=== PATIENT | female | born 1980 | race Caucasian/White ===

== ENCOUNTER 2016-12-08 08:37 | Emergency (ER) | payer MEDICAID ==
[~2016-12-08] VITALS: Ht 160 cm; Wt 65.8 kg
[~2016-12-08 08:37] MED LIST: ALLI; AMOX500C2 PO; BSP10T PO; BUTA-167 PO; CETI10TA20 PO; CLAR-19 PO; CLN.1T; CYCL10TA9 PO; DICL25TA PO; DIPH25CA79 PO; DIVA500T7; GENT3.5O18 OD; HYDR-34 PO; HYDR-3583 PO; HYDR1CAP2 PO; IBP800T PO; LURA40TA PO; METH4TAB PO; MONT10TA21 PO; MONT10TA24; MULT1TAB63; NAPR220C PO; OXYC-197 PO; PRD50T PO; RABE20TA PO; TRM50T PO; [UNRECOGNIZED DRUG - OTHER]
[2016-12-08 09:09] VITALS: BP 127/98
[2016-12-08] MEDS ORDERED: KETOROLAC 60 MG/2 ML VIAL IM ONE (09:30)
--- NOTE | 2016-12-08 09:55 | Diagnostic Imaging Report ---
3 views of the left ribs. INDICATION: Upper left rib pain. FINDINGS: There is no rib fracture. The left lung is clear. IMPRESSION: Unremarkable exam. Dictated by: Dictated on workstation # [id number]
--- NOTE | 2016-12-08 09:56 | Diagnostic Imaging Report ---
EXAMINATION: PA and lateral views of the chest. INDICATION: Popping sensation near the left sternoclavicular joint with thickened breast. FINDINGS: The lungs appear clear. The heart size is normal. No effusion or pneumothorax. The mediastinum and donna appear unremarkable. IMPRESSION: Unremarkable exam. Dictated by: Dictated on workstation # [id number]
--- NOTE | 2016-12-08 10:25 | ED General ---
General Chief Complaint: Chest Wall/Rib Pain Stated Complaint: LEFT SHOULDER PAIN/INJ Nursing Triage Note: c/o left sided chest wall pain. Pt reports having a popping sensation when she takes a deep breath. Onset 4 days ago. Denies known trauma. Nursing Sepsis Screen: No Definite Risk Source of Information: Patient Exam Limitations: No Limitations History of Present Illness Time Seen by Provider: 09:20 Initial Comments This 36-year-old woman presents to the emergency room with complaints of pain in the left upper chest. She reports a popping sensation when she coughs or takes in a deep breath. Pain is sharp in nature and fairly consistent. She recalls no trauma. She denies any significant cough or presence of fever. She does smoke. She has been taking Aleve for the pain. She reported light bruising in this area but no bruising is visible to this provider. Allergies and Home Medications Allergies Coded Allergies: codeine (Verified Allergy, Severe, CHEST PAIN ET SOA, 04/07/15) morphine (Verified Allergy, Severe, CHEST PAIN ET SOA, 04/07/15) tramadol (Verified Allergy, Mild, 08/14/15) watermelon (Verified Allergy, Mild, 08/14/15) hydrocodone (Unverified Adverse Reaction, Intermediate, 05/06/13) ibuprofen (Unverified Adverse Reaction, Intermediate, 05/06/13) Uncoded Allergies: JAY PEPPERS (Allergy, Mild, 08/14/15) Home Medications Divalproex Sodium 500 Mg Tablet., #30 (Reported) Montelukast Sodium 10 Mg Tablet, #30 (Reported) Prednisone 20 Mg Tab, 20 MG PO DAILY, #4 Prescribed by: MATT PINEDA on 12/08/16 1028 Constitutional: no symptoms reported EENTM: no symptoms reported Respiratory: see HPI Cardiovascular: no symptoms reported Gastrointestinal: no symptoms reported Genitourinary: no symptoms reported Musculoskeletal: see HPI Skin: no symptoms reported Psychiatric/Neurological: No Symptoms Reported Hematologic/Lymphatic: No Symptoms Reported Past Inozylr-Isxdoy-Lmfznh Hx Patient Social History Alcohol Use: Denies Use Recreational Drug Use: No Smoking Status: Current Everyday Smoker Former Smoker/When Quit: Sep 23, 2009 Recent Foreign Travel: No Contact w/Someone Who Travel: No Recent Infectious Disease Expo: No Recent Hopitalizations: Yes Immunizations Up To Date Tetanus Booster (TDap): Less than 5yrs Date of Influenza Vaccine: May 05, 2013 Surgeries HX Surgeries: Yes Surgeries: Cardiac (cardiac catheter 2010 with normal coronary arteries), Gallbladder, Hysterectomy Respiratory Hx Respiratory Disorders: No Cardiovascular Hx Cardiac Disorders: Yes (pt states she has had several heart attacks, but heart cath's were all neg) Cardiac Disorders: Heart Attack Neurological Hx Neurological Disorders: Yes Neurological Disorders: Headaches /Migraines Reproductive System Hx Reproductive Disorders: No Sexually Transmitted Disease: No HIV/AIDS: No 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 Genitourinary Hx Genitourinary Disorders: No Gastrointestinal Hx Gastrointestinal Disorders: Yes Gastrointestinal Disorders: Hiatal Hernia, Ulcer, Irritable Bowel Musculoskeletal Hx Musculoskeletal Disorders: Yes Musculoskeletal Disorders: Arthritis Endocrine Hx Endocrine Disorders: Yes Endocrine Disorders: Hypothyroidsim HEENT HX ENT Disorders: No Cancer Hx Cancer: Yes Cancer: Cervical Psychosocial Hx Psychiatric Problems: Yes Behavioral Health Disorders: Anxiety, Bipolar Integumentary HX Skin/Integumentary Disorder: No Blood Transfusions Hx Blood Disorders: No Adverse Reaction to a Blood Tr: No Family Medical History Significant Family History: Heart Disease, Diabetes, Psychiatric Problems, Seizures, Stroke Physical Exam Vital Signs Vital Sign - Last 12Hours 12/08/16 09:09 Temp 97.5 Pulse 72 Resp 18 B/P (MAP) 127/98 Pulse Ox 98 Capillary Refill : Less Than 3 Seconds General Appearance: WD/WN, Mild Distress HEENT: PERRL/EOMI, Normal ENT Inspection Neck: Non Tender Respiratory: Lungs Clear, Normal Breath Sounds, No Accessory Muscle Use, No Respiratory Distress, Other (point tenderness in the left upper anterior chest wall) Cardiovascular: Regular Rate, Rhythm, No Edema, No Murmur Gastrointestinal: Normal Bowel Sounds, Non Tender, Soft Extremity: Normal Inspection, No Pedal Edema Neurologic/Psychiatric: Alert, Oriented x3, No Motor/Sensory Deficits, Normal Mood/Affect, 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 technologist II-XII Norm as Tested Progress/Results/Core Measures Results/Orders My Orders Orders - MATT COBB MD Chest Pa/Lat (2 View) (12/08/16 09:25) Ketorolac Injection (Toradol Injection) (12/08/16 09:30) Ribs, Left 2-3 Views (12/08/16 09:25) Medications Given in ED Current Medications Medications Dose Ordered Sig/Vanna Route Start Time Stop Time Status Last Admin Dose Admin Ketorolac Tromethamine 60 mg ONCE ONCE IM 12/08/16 09:30 12/08/16 09:31 DC 12/08/16 09:51 60 MG Vital Signs/I&O Vital Sign - Last 12Hours 12/08/16 12/08/16 09:09 09:51 Temp 97.5 97.5 Pulse 72 Resp 18 B/P (MAP) 127/98 Pulse Ox 98 Blood Pressure Mean: 108 Progress Note : Progress Note Patient received Toradol with some improvement in pain. X-rays were unremarkable. Diagnostic Imaging Diagonstic Imaging: Xray Plain Films/CT/US/NM/MRI: chest Comments Chest x-ray and rib x-rays reviewed by me and report reviewed. See report below : NAME: NILESH AVILA [facility] REC#: [id number] PT STATUS: REG ER : 1980 PHYSICIAN: MATT COBB MD ADMIT DATE: 12/08/16/ER Draft Date of Exam:12/08/16 RIBS, LEFT 2-3 VIEWS 3 views of the left ribs. INDICATION: Upper left rib pain. FINDINGS: There is no rib fracture. The left lung is clear. IMPRESSION: Unremarkable exam. Dictated on workstation # [id number] Dict: 12/08/1652 Trans: 12/08/1655 [facility] [id number] Interpreted by: MAU PALMA MD NAME: NILESH AVILA [facility] REC#: [id number] PT STATUS: REG ER : 1980 PHYSICIAN: MATT COBB MD ADMIT DATE: 12/08/16/ER Draft Date of Exam:12/08/16 CHEST PA/LAT (2 VIEW) EXAMINATION: PA and lateral views of the chest. INDICATION: Popping sensation near the left sternoclavicular joint with thickened breast. FINDINGS: The lungs appear clear. The heart size is normal. No effusion or pneumothorax. The mediastinum and donna appear unremarkable. IMPRESSION: Unremarkable exam. Dictated on workstation # [id number] Dict: 12/08/16 0951 Trans: 12/08/16 0956 [facility] [id number] Interpreted by: MAU PALAM MD Departure Impression Impression: Primary Impression: Chest wall pain Disposition: 01 HOME, SELF-CARE Condition: Improved Departure-Patient Inst. Decision time for Depature: 10:22 Referrals: [facility] (PCP/Family) Primary Care Physician Patient Instructions: Chest Pain That Is Not Caused by the Heart (DC) Add. Discharge Instructions: You may continue taking anti-inflammatory medication (NSAIDs) such as Aleve ( naproxen) up to 500 mg twice daily. Take an antacid such as Pepcid (famotidine ) per package instructions while you are on anti-inflammatory medication to protect her stomach. Always take NSAID medications with food or milk to avoid stomach irritation. You may add Tylenol (acetaminophen) up to 1000 mg every 6 hours as needed for additional pain relief. Use the prednisone steroids as prescribed. Also take steroids with food or milk. Avoid taking steroids close to bedtime as it may disrupt your sleep. If not improving in a few days, follow -up with your primary care provider. You may return to the emergency room if symptoms worsen. All discharge instructions reviewed with patient and/or family. Voiced understanding. Scripts Prednisone (Prednisone) 20 Mg Tab 20 MG PO DAILY, #4 TAB Prov: MATT COBB MD 12/08/16 MATT COBB MD Dec 08, 2016 10:25
[2016-12-08] MEDS ORDERED: PRD20T PO (10:28)
== END 2016-12-08 10:45 | disposition home or self-care (01) ==
LOC: EDUNIT# 08:37 → ER 08:39
DX: R07.89 Other chest pain (principal); F17.210 Nicotine dependence, cigarettes, uncomplicated
CPT/HCPCS: 71020; 71100; 96372; 99283

== ENCOUNTER 2017-02-08 17:30 | Emergency (ER) | payer MEDICAID ==
[~2017-02-08] VITALS: Ht 154.9 cm; Wt 63.5 kg
[~2017-02-08 17:30] MED LIST changes: +PRD20T PO
[2017-02-08 18:12] LABS: BILIRUBIN,URINE NEGATIVE (NEGATIVE); KETONES,URINE NEGATIVE (NEGATIVE); LEUKOCYTE ESTERASE ,URINE NEGATIVE (NEGATIVE); NITRITE,URINE NEGATIVE (NEGATIVE); PH,URINE 6.5 (5-9); PROTEIN,URINE NEGATIVE (NEGATIVE); UROBILINOGEN,URINE NORMAL (NORMAL)
[2017-02-08 18:13] LABS: BASOPHILS % (AUTO) 0 % (0-10); EOSINOPHILS # (AUTO) 0.2 10^3/uL (0.0-0.3); EOSINOPHILS % (AUTO) 3 % (0-10); LYMPHOCYTES # (AUTO) 2.4 X 10^3 (1.0-4.0); LYMPHOCYTES % (AUTO) 39 % (12-44); MEAN CORPUSCULAR HEMOGLOBIN 31 PG (25-34); MEAN CORPUSCULAR HGB CONC 33 G/DL (32-36); MEAN CORPUSCULAR VOLUME 95 FL (80-99); MEAN PLATELET VOLUME 11.8 FL (7.4-10.4); MONOCYTES # (AUTO) 0.8 X 10^3 (0.0-1.0); MONOCYTES % (AUTO) 13 % (0-12); NEUTROPHILS # (AUTO) 2.8 X 10^3 (1.8-7.8); NEUTROPHILS % (AUTO) 46 % (42-75); PLATELET COUNT 232 10^3/uL (130-400); RED CELL DISTRIBUTION WIDTH 12.7 % (10.0-14.5); WHITE BLOOD COUNT 6.2 10^3/uL (4.3-11.0)
[2017-02-08] MEDS ORDERED: LACTATED RINGERS 1,000 ML IV ONE (18:19)
--- NOTE | 2017-02-08 18:21 | ED Abdominal Pain ---
General Chief Complaint: Abdominal/GI Problems Stated Complaint: L SIDE ABD PAIN Nursing Triage Note: PT CO OF ABD PAIN L LOWER ABD, DENIES BEING CONSTIPATED, HAS SOME NAUSEA Sepsis Screen: No Definite Risk Source of Information: Patient History of Present Illness Time Seen By Provider: 18:00 Initial Comments C/O LUQ PAIN X 3 DAYS PAIN IS CONSTANT AND RADIATES TO LEFT SHOULDER/SCAPULA AREA PAIN IS WORSE WITH MOVEMENT OF LEFT SIDE OF BODY/ARM/LEG NOTHING IMPROVES PAIN--TOOK LAXATIVE YESTERDAY AND TODAY ( IN CASE SHE MIGHT BE CONSTIPATED ) AND HAD BM'S, BUT NO IMPROVEMENT IN PAIN + NAUSEA, NO VOMITING HAS HAD SUBJECTIVE FEVER AND CHILLS OFF AND ON C/O FEELING VERY BLOATED C/O DIZZINESS NO URINARY SYMPTOMS NO HISTORY OF SIMILAR HAS NOT TAKEN ANYTHING FOR PAIN PCP: DR. TALBERT, ALSO GOES TO [facility] USED TO SEE DR. BENNETT BUT HE "RELEASED" HER IN 2011 Allergies and Home Medications Allergies Coded Allergies: codeine (Verified Allergy, Severe, CHEST PAIN ET SOA, 04/07/15) morphine (Verified Allergy, Severe, CHEST PAIN ET SOA, 04/07/15) tramadol (Verified Allergy, Mild, 08/14/15) watermelon (Verified Allergy, Mild, 08/14/15) hydrocodone (Unverified Adverse Reaction, Intermediate, 05/06/13) ibuprofen (Unverified Adverse Reaction, Intermediate, 05/06/13) Uncoded Allergies: JAY PEPPERS (Allergy, Mild, 08/14/15) Home Medications Dicyclomine HCl 10 Mg Capsule, 10 MG PO Q6H PRN for ABDOMINAL PAIN, #15 Prescribed by: STEVEN NICHOLSON on 02/08/171846 Divalproex Sodium 500 Mg Tablet., #30 (Reported) Hyoscyamine Sulfate 0.125 Mg Tab.subl, 1-2 TAB SL Q4H, #15 Prescribed by: STEVEN NICHOLSON on 02/08/171846 Montelukast Sodium 10 Mg Tablet, #30 (Reported) Ondansetron 4 Mg Tab.rapdis, 4 MG PO Q4H, #10 Prescribed by: STEVEN NICHOLSON on 02/08/171846 Pantoprazole Sodium 40 Mg Tablet., 40 MG PO DAILY, #15 Prescribed by: STEVEN NICHOLSON on 02/08/171846 Review of Systems Constitutional: see HPI, chills, dizziness, fever EENTM: No Symptoms Reported Respiratory: No Symptoms Reported Gastrointestinal: See HPI, Abdominal Pain, Denies Constipated, Denies Diarrhea , Nausea, Poor Appetite, Poor Fluid Intake, Denies Vomiting Genitourinary: No Symptoms Reported Musculoskeletal: see HPI (PAIN RADIATES TO LEFT SHOULDER AND SCAPULA) Skin: no symptoms reported Psychiatric/Neurological: No Symptoms Reported Endocrine: No Symptoms Reported Hematologic/Lymphatic: No Symptoms Reported Past Gogpchw-Ftkzmu-Ycyegj Hx Patient Social History Alcohol Use: Rarely Uses Recreational Drug Use: Yes (PT ONLY ADMITS TO THC, BUT TESTED + FOR METH/ AMPHETAMINES WELL, ON 02/08/17) Smoking Status: Current Everyday Smoker (<1 PPD) Type Used: Cigarettes Recent Foreign Travel: No Contact w/Someone Who Travel: No Recent Infectious Disease Expo: No Recent Hopitalizations: No Immunizations Up To Date Tetanus Booster (TDap): Less than 5yrs Date of Influenza Vaccine: May 05, 2013 Seasonal Allergies Seasonal Allergies: Yes Surgeries HX Surgeries: Yes (HYST/BSO; CARDIAC CATH 05/2007 HERE--ESSENTIALLY NORMAL/DR. BENNETT; RIGHT DEQUERVAIN'S RELEASE; ) Surgeries: Cardiac, Gallbladder, Hysterectomy, Oophorectomy, Orthopedic Respiratory Hx Respiratory Disorders: Yes (CHILDHOOD ASTHMA) Respiratory Disorders: Asthma Cardiovascular Hx Cardiac Disorders: Yes (PT STATES "5 HEART ATTACKS SINCE I WAS 26" BUT MULTIPLE CARDIAC CATHS NORMAL. 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 Genitourinary Hx Genitourinary Disorders: No Gastrointestinal Hx Gastrointestinal Disorders: Yes (S/P KATYA) Gastrointestinal Disorders: Hiatal Hernia, Ulcer, Gall Bladder Disease, Irritable Bowel Musculoskeletal Hx Musculoskeletal Disorders: Yes Musculoskeletal Disorders: Arthritis Endocrine Hx Endocrine Disorders: Yes Endocrine Disorders: Hypothyroidsim HEENT HX ENT Disorders: No Cancer Hx Cancer: Yes Cancer: Cervical Psychosocial Hx Psychiatric Problems: Yes (SELF DC'D PSYCH MEDICATIONS) Behavioral Health Disorders: Anxiety, PTSD, Bipolar, Depression Integumentary HX Skin/Integumentary Disorder: No Blood Transfusions Hx Blood Disorders: No Adverse Reaction to a Blood Tr: No Family Medical History Significant Family History: Heart Disease, Diabetes, Psychiatric Problems, Seizures, Stroke Physical Exam Vital Signs VS - Last 72 Hours, by Label 02/08/17 17:35 Temp 98.1 Pulse 85 Resp 18 B/P (MAP) 115/66 Pulse Ox 99 Capillary Refill : Less Than 3 Seconds General Appearance: WD/WN, other (VERY DRAMATIC, HOLDING LUQ; SPEECH MUMBLED AND RAPID AND SOMEWHAT SLURRED--APPEARS TO BE UNDER THE INFLUENCE OF SOME SUBSTANCE/S) HEENT: No scleral icterus (R), No scleral icterus (L) Neck: normal inspection Respiratory: chest non-tender, normal breath sounds, no respiratory distress, no accessory muscle use Cardiovascular: normal peripheral pulses, regular rate, rhythm, no edema, no JVD, no murmur Gastrointestinal: normal bowel sounds, soft, no organomegaly, no pulsatile mass , No abnormal bowel sounds, No distended, guarding (LUQ), No rebound, tenderness (LUQ), No hernia, No mass Extremities: normal range of motion, non-tender, normal inspection, no pedal edema, no calf tenderness, normal capillary refill Back: normal inspection, no CVA tenderness Neurologic/Psychiatric: line assembler 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 nml as tested, no motor/sensory deficits, alert, oriented x 3 Skin: normal color, warm/dry, tattoos/piercings (MULTIPLE TATTOOS) Progress/Results/Core Measures Results/Orders Lab Results Laboratory Tests Test 02/08/17 17:40 Range/Units White Blood Count 6.2 4.3-11.0 10^3/uL Red Blood Count 4.50 4.35-5.85 10^6/uL Hemoglobin 13.9 11.5-16.0 G/DL Hematocrit 43 35-52 % Mean Corpuscular Volume 95 80-99 FL Mean Corpuscular Hemoglobin 31 25-34 PG Mean Corpuscular Hemoglobin Concent 33 32-36 G/DL Red Cell Distribution Width 12.7 10.0-14.5 % Platelet Count 232 130-400 10^3/uL Mean Platelet Volume 11.8 H 7.4-10.4 FL Neutrophils (%) (Auto) 46 42-75 % Lymphocytes (%) (Auto) 39 12-44 % Monocytes (%) (Auto) 13 H 0-12 % Eosinophils (%) (Auto) 3 0-10 % Basophils (%) (Auto) 0 0-10 % Neutrophils # (Auto) 2.8 1.8-7.8 X 10^3 Lymphocytes # (Auto) 2.4 1.0-4.0 X 10^3 Monocytes # (Auto) 0.8 0.0-1.0 X 10^3 Eosinophils # (Auto) 0.2 0.0-0.3 10^3/uL Basophils # (Auto) 0.0 0.0-0.1 10^3/uL Urine Color YELLOW Urine Clarity CLEAR Urine pH 6.5 5-9 Urine Specific [place] 1.010 L 1.016-1.022 Urine Protein NEGATIVE NEGATIVE Urine Glucose (UA) NEGATIVE NEGATIVE Urine Ketones NEGATIVE NEGATIVE Urine Nitrite NEGATIVE NEGATIVE Urine Bilirubin NEGATIVE NEGATIVE Urine Urobilinogen NORMAL NORMAL MG/DL Urine Leukocyte Esterase NEGATIVE NEGATIVE Urine RBC (Auto) NEGATIVE NEGATIVE Urine RBC RARE /HPF Urine WBC RARE /HPF Urine Squamous Epithelial Cells 25-50 H /HPF Urine Crystals NONE /LPF Urine Bacteria NEGATIVE /HPF Urine Casts NONE /LPF Urine Mucus NEGATIVE /LPF Urine Culture Indicated NO Sodium Level 141 135-145 MMOL/L Potassium Level 3.9 3.6-5.0 MMOL/L Chloride Level 106 98-107 MMOL/L Carbon Dioxide Level 26 21-32 MMOL/L Anion Gap 9 5-14 MMOL/L Blood Urea Nitrogen 12 7-18 MG/DL Creatinine 0.83 0.60-1.30 MG/DL Estimat Glomerular Filtration Rate > 60 BUN/Creatinine Ratio 14 0-20 Glucose Level 84 70-105 MG/DL Calcium Level 9.5 8.5-10.1 MG/DL Total Bilirubin 0.3 0.1-1.0 MG/DL Aspartate Amino Transf (AST/SGOT) 19 5-34 U/L Alanine Aminotransferase (ALT/SGPT) 12 0-55 U/L Alkaline Phosphatase 94 40-136 U/L Total Protein 8.1 6.4-8.2 GM/DL Albumin 4.6 H 3.2-4.5 GM/DL Amylase Level 34 25-125 U/L Lipase 43 8-78 U/L Urine Opiates Screen NEGATIVE NEGATIVE Urine Oxycodone Screen NEGATIVE NEGATIVE Urine Methadone Screen NEGATIVE NEGATIVE Urine Propoxyphene Screen NEGATIVE NEGATIVE Urine Barbiturates Screen NEGATIVE NEGATIVE Ur Tricyclic Antidepressants Screen NEGATIVE NEGATIVE Urine Phencyclidine Screen NEGATIVE NEGATIVE Urine Amphetamines Screen POSITIVE H NEGATIVE Urine Methamphetamines Screen POSITIVE H NEGATIVE Urine Benzodiazepines Screen NEGATIVE NEGATIVE Urine Cocaine Screen NEGATIVE NEGATIVE Urine Cannabinoids Screen POSITIVE H NEGATIVE Serum Alcohol < 10 <10 MG/DL My Orders Orders - STEVEN NICHOLSON DO Saline Lock/Iv-Start (02/08/17 18:06) Amylase (02/08/17 18:06) Cbc With Automated Diff (02/08/17 18:06) Comprehensive Metabolic Panel (02/08/17 18:06) Lipase (02/08/17 18:06) Ua Culture If Indicated (02/08/17 18:06) Ct Abdomen/Pelvis W (02/08/17 18:06) Acute Abd Series (02/08/17 18:06) Alcohol (02/08/17 18:16) Drug Screen Stat (Urine) (02/08/17 18:16) Iohexol Injection (Omnipaque 350 Mg/Ml 1 (02/08/17 18:30) Ns (Ivpb) (Sodium Chloride 0.9% Ivpb Bag (02/08/17 18:30) Ondansetron Injection (Zofran Injectio (02/08/17 18:30) Saline Lock/Iv-Start (02/08/17 18:19) Lactated Ringers (Lr 1000 Ml Iv Solution (02/08/17 18:19) Hyoscyamine Sl Tablet (Levsin Sl Tablet) (02/08/17 18:45) Dicyclomine Injection (Bentyl Injection) (02/08/17 18:45) Pantoprazole Tablet (Protonix Tablet) (02/08/17 18:45) Medications Given in ED Current Medications Medications Dose Ordered Sig/Vanna Route Start Time Stop Time Status Last Admin Dose Admin Dicyclomine HCl 20 mg ONCE ONCE IM 02/08/17 18:45 02/08/17 18:46 DC 02/08/17 19:00 20 MG Hyoscyamine Sulfate 0.25 mg ONCE ONCE PO 02/08/17 18:45 02/08/17 18:46 DC 02/08/17 19:00 0.25 MG Iohexol 100 ml ONCE ONCE IV 02/08/17 18:30 02/08/17 18:31 UNV 02/08/17 18:28 100 ML Lactated Ringer's 1,000 ml @ 0 mls/hr Q0M ONCE IV 02/08/17 18:19 02/08/17 18:20 UNV 02/08/17 18:29 1,000 MLS/HR Ondansetron HCl 4 mg ONCE ONCE IVP 02/08/17 18:30 02/08/17 18:31 UNV 02/08/17 18:29 4 MG Pantoprazole Sodium 40 mg ONCE ONCE PO 02/08/17 18:45 02/08/17 18:46 DC 02/08/17 19:00 40 MG Sodium Chloride 100 ml ONCE ONCE IV 02/08/17 18:30 02/08/17 18:31 UNV 02/08/17 18:28 80 ML Vital Signs/I&O Vital Sign - Last 12Hours 02/08/17 17:35 Temp 98.1 Pulse 85 Resp 18 B/P (MAP) 115/66 Pulse Ox 99 Blood Pressure Mean: 82 Point of Care Testing Urine -Bedside: Negative Diagnostic Imaging Comments ACUTE ABDOMEN XRAYS--NON-SPECIFIC BOWEL GAS, OTHERWISE NO ACUTE PROCESS CT ABDOMEN/PELVIS--NO ACUTE PROCESS, R LUNG DENSITY --POSSIBLY SHADOWING PER RADIOLOGIST VIA PHONE AT 1831 Reviewed: Reviewed by Me, Discussed w/Radiologist Departure Impression Impression: Primary Impression: LUQ abdominal pain Additional Impression: Illicit drug use Disposition: 01 HOME, SELF-CARE Condition: Stable Departure-Patient Inst. Referrals: [facility] (PCP/Family) Primary Care Physician DADA ATLBERT DO Patient Instructions: Acute Abdomen (Belly Pain), Adult (DC) Add. Discharge Instructions: CLEAR LIQUIDS--WATER, BROTH, JELLO, GATORADE DO NOT EAT ANY FOOD UNTIL YOUR PAIN IS GONE, THEN YOU MAY ADD A BRATS DIET TO CLEAR LIQUIDS--BANANAS, RICE, APPLESAUCE, TOAST, SALTINES FOLLOW UP WITH DR. TALBERT OR [facility] THIS WEEK FOR FURTHER CARE All discharge instructions reviewed with patient and/or family. Voiced understanding. Scripts Pantoprazole Sodium (Protonix) 40 Mg Tablet.dr 40 MG PO DAILY, #15 TAB Prov: STEVEN NICHOLSON DO 02/08/17 Ondansetron (Zofran Odt) 4 Mg Tab.rapdis 4 MG PO Q4H for Nausea/Vomiting, #10 TAB Prov: STEVEN NICHOLSON DO 02/08/17 Dicyclomine HCl (Bentyl) 10 Mg Capsule 10 MG PO Q6H Y for ABDOMINAL PAIN, #15 CAP Prov: STEVEN NICHOLSON DO 02/08/17 Hyoscyamine Sulfate (Levsin-Sl) 0.125 Mg Tab.subl 1-2 TAB SL Q4H for Abdominal Pain, #15 TAB Prov: STEVEN NICHOLSON DO 02/08/17 STEVEN NICHOLSON DO Feb 08, 2017 18:21
[2017-02-08 18:24] LABS: SQUAMOUS EPITHELIAL CELL,UR 25-50 /HPF; WBC,URINE RARE /HPF
[2017-02-08 18:30] LABS: ALANINE AMINOTRANSFERASE 12 U/L (0-55); ALBUMIN 4.6 GM/DL (3.2-4.5); AMYLASE 34 U/L (25-125); ANION GAP 9 MMOL/L (5-14); ASPARTATE AMINO TRANSFERASE 19 U/L (5-34); BILIRUBIN,TOTAL 0.3 MG/DL (0.1-1.0); BLOOD UREA NITROGEN 12 MG/DL (7-18); BUN/CREATININE RATIO 14 (0-20); CALCIUM 9.5 MG/DL (8.5-10.1); CARBON DIOXIDE 26 MMOL/L (21-32); CHLORIDE 106 MMOL/L (98-107); CREATININE SERUM 0.83 MG/DL (0.60-1.30); GFR ESTIMATED > 60; GLUCOSE 84 MG/DL (70-105); HEMOLYSIS 8 (-100-29); ICTERUS 0.3 (-100-1.9); LIPASE 43 U/L (8-78); LIPEMIA 12 (-100-49); POTASSIUM 3.9 MMOL/L (3.6-5.0); SODIUM 141 MMOL/L (135-145); TOTAL PROTEIN 8.1 GM/DL (6.4-8.2)
[2017-02-08] MEDS ORDERED: IOHEXOL 350 MG/ML 100 ML (OMNIPAQUE 350) VIAL IV ONE (18:30)
[2017-02-08] MEDS ORDERED: NS 100 ML (IVPB) BAG IV ONE (18:30)
[2017-02-08] MEDS ORDERED: ONDANSETRON 4 MG/2 ML (SDV) Z0FRAN IVP ONE (18:30)
--- NOTE | 2017-02-08 18:39 | Diagnostic Imaging Report ---
EXAMINATION: Acute abdomen series. INDICATION: Abdominal pain. FINDINGS: The accompanying erect PA chest shows the heart size to be within normal limits and stable when compared to 12/08/2016. In the interval since the prior study, a faint area of slightly increased density has developed over the right lung base. This finding may merely be secondary to superimposition. The possibility that this is related to a small focus of pneumonia/atelectasis should still be considered. The lungs are otherwise clear. There is no pneumoperitoneum. Supine and erect views of the abdomen were obtained. There is some gas in both the large and small bowel. There are few air-fluid levels present on the erect film but this appearance is nonspecific. These findings may merely be secondary to a mild ileus as opposed to a partial obstruction. The bowel gas pattern is actually similar to the previous CT abdomen/pelvis exam of 05/08/2016. There is no mass, organomegaly, or pathological calcification evident. The osseous structures are intact. Surgical clips are again seen in the right upper quadrant, consistent with prior cholecystectomy. IMPRESSION: 1. The bowel gas pattern is nonspecific. There is no evidence for bowel obstruction. 2. The small area of slightly increased density in the right midlung is questionable for a new focus of pneumonia/atelectasis. Clinical followup is recommended. Dictated by: Dictated on workstation # [id number]
[2017-02-08] MEDS ORDERED: DICYCLOMINE 10 MG/ML (BENTYL) 2 ML AMP IM ONE (18:45)
[2017-02-08] MEDS ORDERED: HYOSCYAMINE 0.125 MG (LEVSIN) TAB PO ONE (18:45)
[2017-02-08] MEDS ORDERED: PANTOPRAZOLE 40 MG (PROTONIX) TAB PO ONE (18:45)
[2017-02-08] MEDS ORDERED: DICY10CA59 PO (18:47)
[2017-02-08] MEDS ORDERED: HYOS0.1283 SL (18:47)
[2017-02-08] MEDS ORDERED: ONDA4TAB8 PO (18:47)
[2017-02-08] MEDS ORDERED: PANT40TA2 PO (18:47)
--- NOTE | 2017-02-08 18:53 | Diagnostic Imaging Report ---
PROCEDURE: CT abdomen and pelvis with contrast. TECHNIQUE: Multiple contiguous axial images were obtained through the abdomen and pelvis after administration of intravenous contrast. INDICATION: Left-sided pain. COMPARISON: The previous CT abdomen/pelvis exam of 05/08/2016 failed to show any sign of an acute abnormality. The plain film examination of the abdomen performed earlier today noted a few air-fluid levels. This appearance was felt to be more likely due to an ileus than to a bowel obstruction. FINDINGS: On this exam, there is some fluid in both the large and small bowel. This appearance is nonspecific. There is no sign of a bowel obstruction. There is no mass or free fluid collection noted. The uterus is surgically absent. The urinary bladder is grossly unremarkable. The appendix was not particularly well-visualized but there are no indirect signs of acute appendicitis. There is no sign of diverticulosis of the sigmoid or descending colon. The liver is homogeneous and not enlarged. As noted on the prior exam, the gallbladder is surgically absent. The spleen, pancreas, kidneys, adrenals, aorta and inferior vena cava show no sign of an acute abnormality. The stomach is not well-distended and consequently difficult to assess. The chest exam performed in conjunction with the abdomen exam noted a small area of increased density overlying the right lung base and raised the question of pneumonia in this area. On this study, there is no sign of pneumonia. However, there is callus formation about a nondisplaced fracture of the anterior aspect of the right fifth rib. Most likely this corresponds to the density seen on the chest exam. The bone windows are otherwise unremarkable for fracture or for destructive lesion. IMPRESSION: 1. There is some fluid in both the large and small bowel. This appearance is nonspecific however. There is no sign of a bowel obstruction. 2. No other acute abnormality of the abdomen or pelvis is noted. 3. The small area of increased density overlying the right lung base seen on the plain film exam is felt to be related to callus formation secondary to a nondisplaced fracture of the right fifth rib. Dictated by: Dictated on workstation # [id number]
[2017-02-08 19:17] VITALS: BP 115/66
== END 2017-02-08 19:17 | disposition home or self-care (01) ==
LOC: EDUNIT# 17:30 → ER 17:32
DX: R10.12 Left upper quadrant pain (principal); I25.10 Atherosclerotic heart disease of native coronary artery without angina pectoris; I11.9 Hypertensive heart disease without heart failure; I25.2 Old myocardial infarction; J45.909 Unspecified asthma, uncomplicated; F31.9 Bipolar disorder, unspecified; E03.9 Hypothyroidism, unspecified; F41.9 Anxiety disorder, unspecified; F17.210 Nicotine dependence, cigarettes, uncomplicated; F19.19 Other psychoactive substance abuse with unspecified psychoactive substance-induced disorder
CPT/HCPCS: 36415; 74022; 74177; 80053; 80306; 80320; 81000; 82150; 83690; 84703; 85025

== ENCOUNTER 2020-09-22 07:18 | Emergency (ER) | payer MEDICAID ==
[~2020-09-22] VITALS: Ht 154.9 cm; Wt 76.8 kg
[~2020-09-22 07:18] MED LIST changes: -CETI10TA20 PO; +CETI10TA49 PO; +DICY10CA59 PO; +DIVA-76; -DIVA500T7; +HYOS0.1283 SL; -MONT10TA24; +MONT10TA97; +ONDA4TAB8 PO; -OXYC-197 PO; +OXYC1TAB87 PO; +PANT40TA2 PO
--- NOTE | 2020-09-22 07:41 | ED Fall/Injury ---
General Stated Complaint: FALL, RIB CAGE PAIN Source: patient Exam Limitations: no limitations History of Present Illness Date Seen by Provider: Sep 22, 2020 Time Seen by Provider: 07:26 Initial Comments Patient presents to the ER by private conveyance from home with chief complaint that yesterday afternoon while taking her dogs out for a walk she lost her balance and fell on the top of the railing on her right anterior ribs. She was taking Tylenol and naproxen for the pain which was working until this morning she says she felt like her pain was progressively getting worse. Her last dose was 3 hours ago for Tylenol and 4 hours ago for Aleve. Her stated allergy to ibuprofen as it causes a rash and swelling. She also states history of heart attacks x6 since she was 26 years old. She follows with Dr. Almazan and does not follow with a line maintenance. She says when she followed with a line maintenance they told her she has needed take aspirin and did not need to follow-up with them anymore. Hurts to move or take deep breaths. Allergies and Home Medications Allergies Coded Allergies: codeine (Verified Allergy, Severe, CHEST PAIN ET SOA, 04/07/15) morphine (Verified Allergy, Severe, CHEST PAIN ET SOA, 04/07/15) tramadol (Verified Allergy, Mild, 08/14/15) watermelon (Verified Allergy, Mild, 08/14/15) hydrocodone (Unverified Adverse Reaction, Intermediate, 05/06/13) ibuprofen (Unverified Adverse Reaction, Intermediate, 05/06/13) Uncoded Allergies: JAY PEPPERS (Allergy, Mild, 08/14/15) Home Medications Dicyclomine HCl 10 Mg Capsule, 10 MG PO Q6H PRN for ABDOMINAL PAIN Prescribed by: STEVEN NICHOLSON on 02/08/171846 Hyoscyamine Sulfate 0.125 Mg Tab.subl, 1-2 TAB SL Q4H Prescribed by: STEVEN NICHOLSON on 02/08/171846 Ondansetron 4 Mg Tab.rapdis, 4 MG PO Q4H Prescribed by: STEVEN NICHOLSON on 02/08/171846 Pantoprazole Sodium 40 Mg Tablet.dr, 40 MG PO DAILY Prescribed by: STEVEN NICHOLSON on 02/08/171846 Patient Home Medication List Home Medication List Reviewed: Yes Review of Systems Review of Systems Constitutional: No chills, No diaphoresis Eyes: Denies Blindness, Denies Drainage Ears, Nose, Mouth, Throat: denies ear pain, denies ear discharge Respiratory: see HPI; No cough, No short of breath Cardiovascular: see HPI, chest pain; No edema, No palpitations, No syncope; vascular heart diseas Gastrointestinal: No abdominal pain, No nausea, No vomiting Genitourinary: No discharge, No dysuria Musculoskeletal: No back pain, No joint pain Past Enmzvdt-Rslvfo-Unjjiq Hx Patient Social History Alcohol Use: Occasionally Uses Smoking Status: Current Everyday Smoker Type Used: Cigarettes Recent Hopitalizations: No Immunizations Up To Date Tetanus Booster (TDap): Less than 5yrs Date of Influenza Vaccine: May 05, 2013 Seasonal Allergies Seasonal Allergies: Yes Past Medical History Surgeries: Yes (HYSTERECTOMY, HEART CATH, [place], DEPRESSION, INPT PSYCHIATRIC) Cardiac, Gallbladder, Hysterectomy, Oophorectomy, Orthopedic Respiratory: No Asthma Cardiac: Yes (pt states she has had several heart attacks, but heart cath's were all neg) Coronary Artery Disease, Heart Attack, Hypertension Neurological: Yes Headaches /Migraines Reproductive Disorders: No 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 Sexually Transmitted Disease: No HIV/AIDS: No Gastrointestinal: Yes Hiatal Hernia, Ulcer, Gall Bladder Disease, Irritable Bowel Musculoskeletal: Yes Arthritis Endocrine: Yes Hypothyroidsim Cancer: Yes Cervical Psychosocial: Yes Anxiety, PTSD, Bipolar, Depression Integumentary: No Blood Disorders: No Adverse Reaction/Blood Tranf: No Family Medical History Heart Disease, Diabetes, Psychiatric Problems, Seizures, Stroke Physical Exam Vital Signs Vital Signs - First Documented 09/22/20 07:26 Temp 36.6 Pulse 97 Resp 18 B/P (MAP) 116/88 (97) Pulse Ox 99 O2 Delivery Room Air Capillary Refill : Height, Weight, BMI Height: 5'1.00" Weight: 140lbs. 8.0oz. 63.227138zl; 28.12 BMI Method:Stated General Appearance: WD/WN, mild distress HEENT: PERRL/EOMI, normal ENT inspection, pharynx normal Neck: full range of motion, normal inspection Cardiovascular: normal peripheral pulses, regular rate, rhythm Respiratory: lungs clear, normal breath sounds (Bilateral breath sounds heard although mildly diminished right versus left), no respiratory distress, accessory muscle use, other (Short, shallow breathing. And splinting of her right anterior ribs. Exquisitely tender to palpation without crepitus or deformity.) Peripheral Pulses: 2+ Radial Pulses (R), 2+ Radial Pulses (L) Gastrointestinal: non tender, soft Neurologic/Psychiatric: alert, normal mood/affect, oriented x 3 Skin: normal color, warm/dry [place] Coma Score Best Eye Response: (4) Open Spontaneously Best Verbal Response: (5) Oriented Best Motor Response: (6) Obeys Commands Rani Total: 15 Progress/Results/Core Measures Results/Orders My Orders Orders - ALEJANDRO BLACKMAN Ketorolac Injection (Toradol Injection) (09/22/20 07:45) Ribs, Right 2-3 Views (09/22/20 07:33) Medications Given in ED Current Medications Medications Dose Ordered Sig/Vanna Route Start Time Stop Time Status Last Admin Dose Admin Ketorolac Tromethamine 60 mg ONCE ONCE IM 09/22/20 07:45 09/22/20 07:46 DC 09/22/20 07:42 60 MG Vital Signs/I&O 09/22/20 07:26 Temp 36.6 Pulse 97 Resp 18 B/P (MAP) 116/88 (97) Pulse Ox 99 O2 Delivery Room Air Progress Progress Note : Time: 07:40 Progress Note Suspect she has fractured right anterior ribs versus cartilaginous injury. There is some concern for pneumothorax however she is maintaining a 97-99% sat. We are going to start with some Toradol for pain control and if necessary we can use opiates. She has multiple pain medicines listed as allergies but only mentioned her allergy to ibuprofen and codeine. Incentive spirometer was provided as well as counseling how to use it. Diagnostic Imaging Diagonstic Imaging: Xray Plain Films/CT/US/NM/MRI: chest (Right ribs 2-3 views) Comments NAME: NILESH AVILA [facility] REC#: [id number] PT STATUS: REG ER : 1980 PHYSICIAN: ALEJANDRO BLACKMAN MD ADMIT DATE: 09/22/20/ER Draft Date of Exam:09/22/20 RIBS, RIGHT 2-3 VIEWS EXAM: RIBS, RIGHT 2-3 VIEWS INDICATION: Fall. Right chest wall pain. COMPARISON: None. FINDINGS: Normal heart size and pulmonary vascularity. No dense consolidation, pleural effusion or pneumothorax. Mildly angulated right 5th and 6th anterior lateral rib fractures. Cholecystectomy clips. IMPRESSION: Mildly angulated right anterolateral 5th and 6th rib fractures are likely acute. Dictated on workstation # [id number] Dict: 09/22/20 0809 Trans: 09/22/20 0819 DESHAWN [id number] Interpreted by: TRACIE WILLSON MD Electronically signed by: Reviewed: Reviewed by Me Departure Impression Primary Impression: Fracture of rib Qualified Codes: S22.41XA - Multiple fractures of ribs, right side, initial encounter for closed fracture Disposition: HOME, SELF-CARE Condition: Stable Departure-Patient Inst. Decision time for Depature: 08:20 Referrals: [facility] (PCP/Family) Primary Care Physician Patient Instructions: Rib Fracture (DC) Add. Discharge Instructions: Continue to use a pillow to splint your rib. Tylenol 650 mg every 8 hours as necessary for pain. Aleve 2 tablets twice a day as necessary for pain. Ice for the first 2 days 20 minutes on every 2 hours. Heating pads as necessary for pain. Topical creams such as icy hot, Biofreeze etc. may be beneficial. Percocet 1 tablet every 6 hours as necessary for severe breakthrough pain. Percocet will cause constipation and you can use Colace or other stool softeners . Percocet will cause drowsiness and should not be mixed with alcohol or long driving. Scripts Oxycodone HCl/Acetaminophen (Oxycodone-Acetaminophen 5-325) 1 Each Tablet 1 EACH PO Q6H PRN for PAIN-MODERATE MDD 6, #20 TAB 0 Refills Prov: ALEJANDRO BLACKMAN 09/22/20 Work/School Note: Work Release Form Date Seen in the Emergency Department: Sep 22, 2020 Return to Work: Sep 30, 2020 Restrictions: No Restrictions ALEJANDRO BLACKMAN Sep 22, 2020 07:41
[2020-09-22] MEDS ORDERED: KETOROLAC 60 MG/2 ML VIAL IM ONE (07:45)
--- NOTE | 2020-09-22 08:20 | Diagnostic Imaging Report ---
EXAM: RIBS, RIGHT 2-3 VIEWS INDICATION: Fall. Right chest wall pain. COMPARISON: None. FINDINGS: Normal heart size and pulmonary vascularity. No dense consolidation, pleural effusion or pneumothorax. Mildly angulated right 5th and 6th anterior lateral rib fractures. Cholecystectomy clips. IMPRESSION: Mildly angulated right anterolateral 5th and 6th rib fractures are likely acute. Dictated by: Dictated on workstation # [id number]
[2020-09-22] MEDS ORDERED: OXYC-471 PO (08:26)
[2020-09-22] MEDS ORDERED: oxyCODONE/APAP 5/325MG (PERCOCET 5) TABLET PO ONE (08:30)
--- NOTE | 2020-09-22 08:30 | NUR ---
Uzma elena in [facility] - 09/22/20 at 0831 by PMCCLURE LUCA HERE TO TRANSPORT TO THE [facility]
[2020-09-22 08:40] VITALS: BP 110/63
== END 2020-09-22 08:40 | disposition home or self-care (01) ==
LOC: EDUNIT# 07:18 → ER 07:19
DX: S22.41XA Multiple fractures of ribs, right side, initial encounter for closed fracture (principal); I25.2 Old myocardial infarction; F17.210 Nicotine dependence, cigarettes, uncomplicated; Z87.410 Personal history of cervical dysplasia; Z82.49 Family history of ischemic heart disease and other diseases of the circulatory system; Z83.3 Family history of diabetes mellitus; Z95.9 Presence of cardiac and vascular implant and graft, unspecified; Z88.5 Allergy status to narcotic agent; Z88.6 Allergy status to analgesic agent; W17.89XA Other fall from one level to another, initial encounter
CPT/HCPCS: 71100

== ENCOUNTER 2021-03-19 11:13 | Emergency (ER) | payer MEDICAID ==
[~2021-03-19] VITALS: Ht 154.9 cm; Wt 72.0 kg
[~2021-03-19 11:13] MED LIST changes: +MONT10TA32; -MONT10TA97; +OXYC1TAB11 PO
[2021-03-19] MEDS ORDERED: GABA-486 PO (11:38)
--- NOTE | 2021-03-19 11:38 | ED Lower Extremity ---
General Chief Complaint: Lower Extremity Stated Complaint: LEFT FOOT PAIN Source: patient Exam Limitations: no limitations (MIROSLAVA SCHREIBER APRN) History of Present Illness Date Seen by Provider: Mar 19, 2021 Time Seen by Provider: 11:32 Initial Comments To ER with left foot pain. This began a few weeks ago when she stubbed her fourth and fifth toes. [facility] and was told it was normal. Today she had some sharp pain of the left leg and left arm. The injury the toe #4 and 5 will turn purple and swell. Onset: this evening Severity: moderate Pain/Injury Location: left leg, left foot Method of Injury: unknown Modifying Factors: Worse With Movement (MIROSLAVA SCHREIBER APRN) Allergies and Home Medications Allergies Coded Allergies: codeine (Verified Allergy, Severe, CHEST PAIN ET SOA, 04/07/15) morphine (Verified Allergy, Severe, CHEST PAIN ET SOA, 04/07/15) tramadol (Verified Allergy, Mild, 08/14/15) watermelon (Verified Allergy, Mild, 08/14/15) hydrocodone (Unverified Adverse Reaction, Intermediate, 05/06/13) ibuprofen (Unverified Adverse Reaction, Intermediate, 05/06/13) Uncoded Allergies: JAY PEPPERS (Allergy, Mild, 08/14/15) Home Medications Dicyclomine HCl 10 Mg Capsule, 10 MG PO Q6H PRN for ABDOMINAL PAIN Prescribed by: STEVEN NICHOLSON on 02/08/171846 Gabapentin 100 Mg Capsule, 100 MG PO Q8H Prescribed by: MIROSLAVA SCHREIBER on 03/19/21 1138 Hyoscyamine Sulfate 0.125 Mg Tab.subl, 1-2 TAB SL Q4H Prescribed by: STEVEN NICHOLSON on 02/08/171846 Ondansetron 4 Mg Tab.rapdis, 4 MG PO Q4H Prescribed by: STEVEN NICHOLSON on 02/08/171846 Oxycodone HCl/Acetaminophen 1 Each Tablet, 1 EACH PO Q6H PRN for PAIN-MODERATE Prescribed by: ALEJANDRO BLACKMAN on 09/22/20 0827 Oxycodone HCl/Acetaminophen 1 Each Tablet, 1 TAB PO Q6H Prescribed by: JALIL AGUILAR on 01/13/21 1208 Pantoprazole Sodium 40 Mg Tablet.dr, 40 MG PO DAILY Prescribed by: STEVEN NICHOLSON on 02/08/17 7279 Patient Home Medication List Home Medication List Reviewed: Yes (MIROSLAVA SCHREIBER APRN) Review of Systems Constitutional: see HPI EENTM: see HPI Respiratory: no symptoms reported Cardiovascular: no symptoms reported Genitourinary: no symptoms reported Musculoskeletal: see HPI Skin: no symptoms reported Psychiatric/Neurological: No Symptoms Reported (MIROSLAVA SCHREIBER APRN) Past Yvovswz-Hyoynw-Zohelb Hx Patient Social History Tobacco Use?: Yes Tobacco type used: Cigarettes Smoking Status: Light Tobacco Smoker Use of E-Cig and/or Vaping dev: No Substance use?: Yes Substance type: Marijuana Alcohol Use?: No Pt feels they are or have been: No (MIROSLAVA SCHREIBER APRN) Immunizations Up To Date Tetanus Booster (TDap): Less than 5yrs Influenza Vaccine Up-to-Date: No; Not Current (MIROSLAVA SCHREIBER APRN) Seasonal Allergies Seasonal Allergies: Yes (MIROSLAVA SCHREIBER APRN) Past Medical History Surgeries: Yes (HYSTERECTOMY, HEART CATH, [place], DEPRESSION, INPT PSYCHIATRIC) Cardiac, Gallbladder, Hysterectomy, Oophorectomy, Orthopedic Respiratory: No Asthma Cardiac: Yes (pt states she has had several heart attacks, but heart cath's were all neg) Coronary Artery Disease, Heart Attack, Hypertension Neurological: Yes Headaches /Migraines 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 Sexually Transmitted Disease: No HIV/AIDS: No Gastrointestinal: Yes Hiatal Hernia, Ulcer, Gall Bladder Disease, Irritable Bowel Musculoskeletal: Yes Arthritis Endocrine: Yes Hypothyroidsim Cancer: Yes Cervical Psychosocial: Yes Anxiety, PTSD, Bipolar, Depression Integumentary: No Blood Disorders: No Adverse Reaction/Blood Tranf: No (MIROSLAVA SCHREIBER APRN) Family Medical History Heart Disease, Diabetes, Psychiatric Problems, Seizures, Stroke (MIROSLAVA SCHREIBER APRN) Physical Exam Vital Signs Vital Signs - First Documented 03/19/21 11:26 Temp 36.6 Pulse 76 Resp 20 B/P (MAP) 144/90 (108) Pulse Ox 97 O2 Delivery Room Air (MATT COBB MD) Vital Signs Capillary Refill : (MIROSLAVA SCHREIBER APRN) Height, Weight, BMI Height: 5'1.00" Weight: 140lbs. 8.0oz. 63.265672cg; 28.00 BMI Method:Stated General Appearance: WD/WN, no apparent distress HEENT: PERRL/EOMI, normal ENT inspection Neck: non-tender, full range of motion Respiratory: no respiratory distress, no accessory muscle use Hips: bilateral hip non-tender, bilateral hip normal inspection, bilateral hip normal range of motion Legs: bilateral leg non-tender, bilateral leg normal inspection, bilateral leg normal range of motion Knees: bilateral knee non-tender, bilateral knee normal inspection, bilateral knee normal range of motion Ankles: bilateral ankle non-tender, bilateral ankle normal inspection, bilateral ankle normal range of motion Feet: bilateral foot non-tender, bilateral foot normal inspection, bilateral foot normal range of motion Neurologic/Psychiatric: alert, normal mood/affect, oriented x 3 Skin: normal color, warm/dry (MIROSLAVA SCHREIBER APRN) Progress/Results/Core Measures Results/Orders Vital Signs/I&O 03/19/21 03/19/21 11:26 12:03 Temp 36.6 Pulse 76 76 Resp 20 20 B/P (MAP) 144/90 (108) 144/90 (108) Pulse Ox 97 97 O2 Delivery Room Air (MATT COBB MD) Departure Impression Primary Impression: Reflex sympathetic dystrophy Disposition: HOME, SELF-CARE Condition: Stable Departure-Patient Inst. Decision time for Depature: 11:35 (MIROSLAVA SCHREIBER APRN) Referrals: DADA TALEBRT DO (PCP/Family) Primary Care Physician Patient Instructions: Complex Regional Pain Syndrome Add. Discharge Instructions: 1. The basis of recovery from this this time. Take the pain medication as directed in the meantime to help with discomfort. All discharge instructions reviewed with patient and/or family. Voiced understanding. Scripts Gabapentin (Gabapentin) 100 Mg Capsule 100 MG PO Q8H for Neuropathic pain, #20 CAP Prov: MIROSLAVA SCHREIBER APRN 03/19/21 ATTENDING PHYSICIAN NOTE: I was physically present as attending physician in the emergency department dur ing the care of this patient, but I was not directly involved in the decision making or delivery of care for this patient. (MATT COBB MD) MIROSLAVA SCHREIBER APRN Mar 19, 2021 11:38 MATT COBB MD Mar 19, 2021 19:10
[2021-03-19 12:03] VITALS: BP 144/90
--- NOTE | 2021-03-19 12:06 | Diagnostic Imaging Report ---
INDICATION: Pain, greatest at the fourth and fifth toes. FINDINGS: Three-view left foot performed. No fracture, dislocation, opaque foreign body, gas, or acute appearing abnormalities are seen. In particular, the fourth and fifth toes showed no acute appearing pathology. IMPRESSION: Unremarkable three views of the foot. Dictated by: Dictated on workstation # [id number]
== END 2021-03-19 12:04 | disposition home or self-care (01) ==
LOC: EDUNIT# 11:13 → ER 11:14
DX: G90.522 Complex regional pain syndrome I of left lower limb (principal); I10 Essential (primary) hypertension; K58.9 Irritable bowel syndrome, unspecified; F17.210 Nicotine dependence, cigarettes, uncomplicated; Z88.5 Allergy status to narcotic agent; Z79.899 Other long term (current) drug therapy
CPT/HCPCS: 73630; 99283

== ENCOUNTER → 2021-05-26 | Outpatient (CLI) | payer MEDICAID ==
[~2021-05-26] MED LIST changes: +GABA-486 PO
--- NOTE | 2021-05-26 10:14 | Diagnostic Imaging Report ---
INDICATION: Chronic neck pain. TIME OF EXAM: 9:20 AM 3 views of the cervical spine were obtained. Alignment is normal. There is degenerative disc disease C5-C6 level with disc space narrowing and marginal spurring. Prevertebral tissues are normal. No fractures are identified. IMPRESSION: Lower cervical spondylosis. No acute bony abnormality is detected. Dictated by: Dictated on workstation # [id number]
== END ==
LOC: RAD 09:06
PROVIDERS: ATTEND Family Medicine
DX: M47.812 Spondylosis without myelopathy or radiculopathy, cervical region (principal)
CPT/HCPCS: 72040

== ENCOUNTER 2021-09-18 11:28 | Emergency (ER) | payer MEDICAID ==
[~2021-09-18] VITALS: Ht 154.9 cm; Wt 72.0 kg
[~2021-09-18 11:28] MED LIST changes: +MONT-40; -MONT10TA32
[2021-09-18 11:54] VITALS: BP 112/68
--- NOTE | 2021-09-18 12:06 | ED Cough/URI ---
General Chief Complaint: COVID19 Suspect/Confirmed Stated Complaint: FEVER,BODY ACHES,CARRASCO Nursing Triage Note: PT AMB TO RM 7 WITH COMPLAINT OF FEVER, HEADACHE, SINUS PAIN/DRAINAGE. Source: patient Exam Limitations: no limitations History of Present Illness Date Seen by Provider: Sep 18, 2021 Time Seen by Provider: 12:03 Initial Comments To ER with a 3-day history of Bitemporal and frontal headache with intermittent fevers unmeasured sinus pressure and drainage. She has had mild sore throat. History of migraines and this is similar. No preceding trauma. Timing/Duration: constant Severity/Quality: mild Modifying Factors: Improves With Activity Associated Symptoms: denies symptoms Allergies and Home Medications Allergies Coded Allergies: codeine (Verified Allergy, Severe, CHEST PAIN ET SOA, 04/07/15) morphine (Verified Allergy, Severe, CHEST PAIN ET SOA, 04/07/15) tramadol (Verified Allergy, Mild, 08/14/15) watermelon (Verified Allergy, Mild, 08/14/15) hydrocodone (Unverified Adverse Reaction, Intermediate, 05/06/13) ibuprofen (Unverified Adverse Reaction, Intermediate, 05/06/13) Uncoded Allergies: JAY PEPPERS (Allergy, Mild, 08/14/15) Patient Home Medication List Home Medication List Reviewed: Yes Dicyclomine HCl (Bentyl) 10 Mg Capsule, 10 MG PO Q6H PRN for ABDOMINAL PAIN Prescribed by: STEVEN NICHOLSON on 02/08/171846 Divalproex Sodium (Divalproex Sodium) 500 Mg Tablet.dr (Reported) Entered as Reported by: BERONICA SOLORIO on 05/08/16 0947 Gabapentin (Gabapentin) 100 Mg Capsule, 100 MG PO Q8H Prescribed by: MIROSLAVA SCHREIBER on 03/19/21 1138 Hyoscyamine Sulfate (Levsin-Sl) 0.125 Mg Tab.subl, 1-2 TAB SL Q4H Prescribed by: STEVEN NICHOLSON on 02/08/171846 Montelukast Sodium (Montelukast Sodium) 10 Mg Tablet, (Reported) Entered as Reported by: BERONICA SOLORIO on 05/08/16 0946 Ondansetron (Zofran Odt) 4 Mg Tab.rapdis, 4 MG PO Q4H Prescribed by: STEVEN NICHOLSON on 02/08/171846 Oxycodone HCl/Acetaminophen (Oxycodone-Acetaminophen 5-325) 1 Each Tablet, 1 EACH PO Q6H PRN for PAIN-MODERATE Prescribed by: ALEJANDRO BLACKMAN on 09/22/20 0827 Oxycodone HCl/Acetaminophen (Percocet 5-325 mg Tablet) 1 Each Tablet, 1 TAB PO Q6H Prescribed by: JALIL AGUILAR on 01/13/21 1208 Pantoprazole Sodium (Protonix) 40 Mg Tablet.dr, 40 MG PO DAILY Prescribed by: STEVEN NICHOLSON on 02/08/171846 Review of Systems Review of Systems Constitutional: see HPI EENTM: see HPI Respiratory: no symptoms reported Cardiovascular: no symptoms reported Genitourinary: no symptoms reported Musculoskeletal: no symptoms reported Skin: no symptoms reported Psychiatric/Neurological: No Symptoms Reported Hematologic/Lymphatic: No Symptoms Reported Past Mvyrqvx-Znosgr-Afzvdm Hx Patient Social History Tobacco Use?: Yes Tobacco type used: Cigarettes Smoking Status: Current Everyday Smoker Substance use?: Yes Substance type: Marijuana Alcohol Use?: Yes Alcohol Frequency: Couple times a week Immunizations Up To Date Tetanus Booster (TDap): Less than 5yrs Seasonal Allergies Seasonal Allergies: Yes Past Medical History Surgeries: Yes (HYSTERECTOMY, HEART CATH, [place], DEPRESSION, INPT PSYCHIATRIC) Cardiac, Gallbladder, Hysterectomy, Oophorectomy, Orthopedic Respiratory: No Asthma Cardiac: Yes (pt states she has had several heart attacks, but heart cath's were all neg) Coronary Artery Disease, Heart Attack, Hypertension Neurological: Yes Headaches /Migraines 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 Sexually Transmitted Disease: No HIV/AIDS: No Gastrointestinal: Yes Hiatal Hernia, Ulcer, Gall Bladder Disease, Irritable Bowel Musculoskeletal: Yes Arthritis Endocrine: Yes Hypothyroidsim Cancer: Yes Cervical Psychosocial: Yes Anxiety, PTSD, Bipolar, Depression Integumentary: No Blood Disorders: No Adverse Reaction/Blood Tranf: No Family Medical History Heart Disease, Diabetes, Psychiatric Problems, Seizures, Stroke Physical Exam Vital Signs - First Documented 09/18/21 11:54 Temp 37.2 Pulse 96 Resp 16 B/P (MAP) 112/68 (83) Pulse Ox 98 O2 Delivery Room Air Capillary Refill : Less Than 3 Seconds Height: 5'1.00" Weight: 140lbs. 8.0oz. 63.634740ep; 30.00 BMI Method:Stated General Appearance: WD/WN, no apparent distress Eyes: Bilateral Eye Normal Inspection, Bilateral Eye PERRL, Bilateral Eye EOMI HEENT: PERRL/EOMI, normal ENT inspection Neck: non-tender, full range of motion Respiratory: normal breath sounds, no respiratory distress, no accessory muscle use Cardiovascular: regular rate, rhythm, no murmur Extremities: normal range of motion, non-tender Neurologic/Psychiatric: alert, normal mood/affect, oriented x 3 Skin: normal color, warm/dry Progress/Results/Core Measures Suspected Sepsis SIRS Temperature: Pulse: 96 Respiratory Rate: 16 Blood Pressure 112 /68 Mean: 83 Results/Orders My Orders Orders - MIROSLAVA SCHREIBER APRN Ketorolac Injection (Toradol Injection) (09/18/21 12:15) Diphenhydramine Injection (Benadryl Inje (09/18/21 12:15) Prochlorperazine Injection (Compazine In (09/18/21 12:15) Coronavirus Sars-Cov-2 So 2018 (09/18/21 12:02) Vital Signs/I&O 09/18/21 11:54 Temp 37.2 Pulse 96 Resp 16 B/P (MAP) 112/68 (83) Pulse Ox 98 O2 Delivery Room Air Capillary Refill : Less Than 3 Seconds Blood Pressure Mean: 83 Departure Impression Primary Impression: Head ache Disposition: 01 HOME, SELF-CARE Condition: Stable Departure-Patient Inst. Decision time for Depature: 12:05 Referrals: DADA TALBERT DO (PCP/Family) Primary Care Physician Patient Instructions: Headache, Adult Add. Discharge Instructions: 1. Follow-up with your doctor next week. Your Covid test should be resulted sometime tomorrow evening. Return to ER for any concerns. All discharge instructions reviewed with patient and/or family. Voiced understanding. MIROSLAVA SCHREIBER APRN Sep 18, 2021 12:06
[2021-09-18] MEDS ORDERED: SUMAtriptan 6 MG/0.5 ML (IMITREX) INJ SQ ONE ×2 (12:15→12:17)
[2021-09-18] MEDS ORDERED: KETOROLAC 60 MG/2 ML VIAL IM ONE (12:15)
[2021-09-18] MEDS ORDERED: diphenhydrAMINE 50 MG/ML INJ (BENADRYL) IM ONE (12:15)
[2021-09-18] MEDS ORDERED: PROCHLORPERAZINE 10 MG/2ML INJ (COMPAZINE) IM ONE (12:15)
[2021-09-18] MEDS ORDERED: PROCHLORPERAZINE 10 MG/2ML INJ (COMPAZINE) ONE (12:17)
== END 2021-09-18 12:45 | disposition home or self-care (01) ==
LOC: EDUNIT# 11:28 → ER 11:29
DX: U07.1 COVID-19 (principal); I25.2 Old myocardial infarction; I10 Essential (primary) hypertension; F17.210 Nicotine dependence, cigarettes, uncomplicated; F31.9 Bipolar disorder, unspecified; Z79.899 Other long term (current) drug therapy
CPT/HCPCS: 87635; 99284

== ENCOUNTER 2022-11-10 10:21 | Emergency (ER) | payer MEDICAID ==
[~2022-11-10] VITALS: Ht 154.9 cm; Wt 72.5 kg
--- NOTE | 2022-11-10 11:07 | ED EENT ---
History of Present Illness General Chief Complaint: Ear Problems Stated Complaint: LEFT EAR PAIN Nursing Triage Note: PT AMB TO [facility] 6 WITH COMLPAINT OF EAR PAIN FOR A FEW DAYS. Source: patient Exam Limitations: no limitations History of Present Illness Date Seen by Provider: Nov 10, 2022 Time Seen by Provider: 11:04 Initial Comments Patient is a 42-year-old female with a history of coronary artery disease, IBS, acid reflux, allergies presents ED with multiple complaints. She reports left ear pain for the past 2 weeks. Pain is worse over the past 3 to 4 days. Pain is worse when she swallows, breeze or with her indigestion. She states she has been having indigestion, chest pain for the past month. Associated shortness of breath. She states she has had a history of cardiac stents placed. Unclear if this is cardiac in nature but is concerned that may be related to her IBS versus acid reflux. Not currently on any PPI. Has not followed up with her primary care physician. She has nausea without vomiting or diarrhea. Chest pressure is intermittent with the shortness of breath. She coughs at night. She does report some nasal congestion sinus pressure but has been taking allergy medication without much improvement. Denies dysuria, hematuria, abdominal pain, flank pain, fever. She reports chronic partial here deficits of the left ear. Denies of any worsening hearing difficulties, ringing of the ear, ear drainage Allergies and Home Medications Allergies Coded Allergies: codeine (Verified Allergy, Severe, CHEST PAIN ET SOA, 04/07/15) morphine (Verified Allergy, Severe, CHEST PAIN ET SOA, 04/07/15) tramadol (Verified Allergy, Mild, 08/14/15) watermelon (Verified Allergy, Mild, 08/14/15) hydrocodone (Unverified Adverse Reaction, Intermediate, 05/06/13) ibuprofen (Unverified Adverse Reaction, Intermediate, 05/06/13) Uncoded Allergies: JAY PEPPERS (Allergy, Mild, 08/14/15) Patient Home Medication List Home Medication List Reviewed: Yes Amoxicillin/Potassium Clav (Amox Tr-K Clv 875-125 mg Tab) 875 Mg-125 Mg Tablet, 1 EACH PO BID Prescribed by: KELLEY NELSON on 11/10/22 1231 Dicyclomine HCl (Bentyl) 10 Mg Capsule, 10 MG PO Q6H PRN for ABDOMINAL PAIN Prescribed by: STEVEN NICHOLSON on 02/08/171846 Divalproex Sodium (Divalproex Sodium) 500 Mg Tablet., (Reported) Entered as Reported by: BERONICA SOLORIO on 05/08/16 0947 Gabapentin (Gabapentin) 100 Mg Capsule, 100 MG PO Q8H Prescribed by: MIROSLAVA SCHREIBER on 03/19/21 1138 Hyoscyamine Sulfate (Levsin-Sl) 0.125 Mg Tab.subl, 1-2 TAB SL Q4H Prescribed by: STEVEN NICHOLSON on 02/08/171846 Montelukast Sodium (Montelukast Sodium) 10 Mg Tablet, (Reported) Entered as Reported by: BERONICA SOLORIO on 05/08/16 0946 Ondansetron (Zofran Odt) 4 Mg Tab.rapdis, 4 MG PO Q4H Prescribed by: STEVEN NICHOLSON on 02/08/171846 Oxycodone HCl/Acetaminophen (Oxycodone-Acetaminophen 5-325) 1 Each Tablet, 1 EACH PO Q6H PRN for PAIN-MODERATE Prescribed by: ALEJANDRO BLACKMAN on 09/22/20 0827 Oxycodone HCl/Acetaminophen (Percocet 5-325 mg Tablet) 1 Each Tablet, 1 TAB PO Q6H Prescribed by: JALIL AGUILAR on 01/13/21 1208 Pantoprazole Sodium (Protonix) 40 Mg Tablet., 40 MG PO DAILY Prescribed by: STEVEN NICHOLSON on 02/08/171846 Pantoprazole Sodium (Protonix) 40 Mg Tablet., 40 MG PO DAILY Prescribed by: KELLEY NELSON on 11/10/22 1231 Review of Systems Review of Systems Constitutional: No chills, No diaphoresis, No fever, No malaise, No weakness Eyes: Denies Blurred Vision, Denies Drainage, Denies Decreased Acuity Ears: Denies Dizziness; Pain; Denies Tinnitus, Denies Bloody Discharge, Denies Clear Discharge Nose: denies clots; congestion; denies epistaxis, denies pain Mouth: denies clots, denies loose teeth Throat: denies pain; painful swallowing Cardiovascular: chest pain Gastrointestinal: No abdominal pain, No diarrhea; nausea; No vomiting Musculoskeletal: No back pain, No joint pain Skin: No change in color, No change in hair/nails Neurological: Denies See HPI, Denies Anxiety Past Swaxvtq-Hhtapb-Obwzdj Hx Patient Social History Tobacco Use?: Yes Tobacco type used: Cigarettes Smoking Status: Current Everyday Smoker Use of E-Cig and/or Vaping dev: No Substance use?: Yes Substance type: Marijuana Alcohol Use?: Yes Alcohol Frequency: Once in a while Pt feels they are or have been: No Immunizations Up To Date Tetanus Booster (TDap): Less than 5yrs Seasonal Allergies Seasonal Allergies: Yes Past Medical History Surgeries: Yes (HYSTERECTOMY, HEART CATH, AL, DEPRESSION, INPT PSYCHIATRIC) Cardiac, Gallbladder, Hysterectomy, Oophorectomy, Orthopedic Respiratory: No Asthma Cardiac: Yes (pt states she has had several heart attacks, but heart cath's were all neg) Coronary Artery Disease, Heart Attack, Hypertension Neurological: Yes Headaches /Migraines Reproductive Disorders: No [employer] History: Hysterectomy Sexually Transmitted Disease: No HIV/AIDS: No Gastrointestinal: Yes Hiatal Hernia, Ulcer, Gall Bladder Disease, Irritable Bowel Musculoskeletal: Yes Arthritis Endocrine: Yes Hypothyroidsim Cancer: Yes Cervical Psychosocial: Yes Anxiety, PTSD, Bipolar, Depression Integumentary: No Blood Disorders: No Adverse Reaction/Blood Tranf: No Family Medical History Heart Disease, Diabetes, Psychiatric Problems, Seizures, Stroke Physical Exam Vital Signs Vital Signs - First Documented 11/10/22 10:44 Temp 36.6 Pulse 78 Resp 20 B/P (MAP) 120/87 (98) Pulse Ox 98 O2 Delivery Room Air Height, Weight, BMI Height: 5'1.00" Weight: 140lbs. 8.0oz. 63.417248as; 30.00 BMI Method:Stated General Appearance: WD/WN, no apparent distress Eyes: bilateral eye normal inspection, bilateral eye PERRL, bilateral eye EOMI Ears: left ear TM dull, left ear TM red Nose: normal inspection Mouth/Throat: normal mouth inspection, pharynx normal, dental tenderness, excessive drooling, other (No cervical neck tenderness. No thyroid tenderness or nodular's. No cervical adenopathy. Oropharynx pain without erythema, swelling, exudate.) Neck: non-tender, full range of motion, supple Cardiovascular: regular rate, rhythm, no edema, no gallop, no JVD Respiratory: chest non-tender, lungs clear, normal breath sounds, no respiratory distress, no accessory muscle use Gastrointestinal: normal bowel sounds, non tender, soft Neurologic/Psychiatric: gold leaf layer II-XII nml as tested, no motor/sensory deficits, alert, normal mood/affect, oriented x 3 Skin: normal color, warm/dry Progress/Results/Core Measures Results/Orders Lab Results Laboratory Tests Test 11/10/22 11:50 Range/Units White Blood Count 6.9 4.3-11.0 10^3/uL Red Blood Count 4.63 3.80-5.11 10^6/uL Hemoglobin 14.2 11.5-16.0 g/dL Hematocrit 43 35-52 % Mean Corpuscular Volume 92 80-99 fL Mean Corpuscular Hemoglobin 31 25-34 pg Mean Corpuscular Hemoglobin Concent 33 32-36 g/dL Red Cell Distribution Width 12.6 10.0-14.5 % Platelet Count 208 130-400 10^3/uL Mean Platelet Volume 11.5 9.0-12.2 fL Immature Granulocyte % (Auto) 0 % Neutrophils (%) (Auto) 53 42-75 % Lymphocytes (%) (Auto) 35 12-44 % Monocytes (%) (Auto) 9 0-12 % Eosinophils (%) (Auto) 2 0-10 % Basophils (%) (Auto) 0 0-10 % Neutrophils # (Auto) 3.6 1.8-7.8 10^3/uL Lymphocytes # (Auto) 2.4 1.0-4.0 10^3/uL Monocytes # (Auto) 0.6 0.0-1.0 10^3/uL Eosinophils # (Auto) 0.2 0.0-0.3 10^3/uL Basophils # (Auto) 0.0 0.0-0.1 10^3/uL Immature Granulocyte # (Auto) 0.0 0.0-0.1 10^3/uL Sodium Level 141 135-145 MMOL/L Potassium Level 3.9 3.6-5.0 MMOL/L Chloride Level 108 H 98-107 MMOL/L Carbon Dioxide Level 22 21-32 MMOL/L Anion Gap 11 5-14 MMOL/L Blood Urea Nitrogen 9 7-18 MG/DL Creatinine 0.70 0.60-1.30 MG/DL Estimat Glomerular Filtration Rate 109 BUN/Creatinine Ratio 13 Glucose Level 89 70-105 MG/DL Calcium Level 9.5 8.5-10.1 MG/DL Corrected Calcium 9.3 8.5-10.1 MG/DL Total Bilirubin 0.3 0.1-1.0 MG/DL Aspartate Amino Transf (AST/SGOT) 16 5-34 U/L Alanine Aminotransferase (ALT/SGPT) 14 0-55 U/L Alkaline Phosphatase 91 40-136 U/L Troponin I < 0.028 <0.028 NG/ML Total Protein 7.7 6.4-8.2 GM/DL Albumin 4.2 3.2-4.5 GM/DL My Orders Orders - NIKOLAI COLLADO Cbc With Automated Diff (11/10/22 11:02) Comprehensive Metabolic Panel (11/10/22 11:02) Troponin I Sinan (11/10/22 11:02) Ekg Tracing (11/10/22 11:02) Chest 1 View, Ap/Pa Only (11/10/22 11:02) Pantoprazole Tablet (Protonix Tablet) (11/10/22 11:15) Medications Given in ED Current Medications Medications Dose Ordered Sig/Vanna Route Start Time Stop Time Status Last Admin Dose Admin Pantoprazole Sodium 40 mg ONCE ONCE PO 11/10/22 11:15 11/10/22 11:16 DC 11/10/22 11:42 40 MG Vital Signs/I&O 11/10/22 11/10/22 10:44 12:42 Temp 36.6 36.6 Pulse 78 77 Resp 20 20 B/P (MAP) 120/87 (98) 118/90 Pulse Ox 98 98 O2 Delivery Room Air Room Air Blood Pressure Mean: 98 Comment Sinus bradycardia, 54 bpm, QRS duration 83 MS, QTc 390 MS Departure Communication (PCP) Reviewed previous ER visit, H&P's, lab testing. Patient with a history of coronary artery disease, GERD. Presents to ED with left ear pain, burning in the chest. Patient has no specific chest pain at this time. Intermittent pain over the past month. She does report a cough at night. Indigestion and belching. Due to the location of pain with a history of coronary artery disease, cardiac work-up, CBC, CMP, troponin, chest x-ray was initiated. Not able to see her last stress test and echocardiogram. Patient main complaint is her left ear bothering her for the past 2 weeks. She reports chronic hearing changes of that left ear. She does have some sinus pressure congestion over the past several days which she thought was allergies. No improvement with allergy medication. She cannot recall what medication. Differential diagnosis otitis media, GERD, esophagitis, sinusitis, CAD. She has no other upper abdominal tenderness on palpation. History of cholecystectomy. Patient CBC and CMP was otherwise unremarkable. Normal troponin. EKG sinus bradycardia without evidence of ST elevation or depression. Cardiac risk factors. Heart score 2. Patient symptoms appear to be more upper GI such as gastritis versus esophagitis versus GERD. She was given Protonix 40mg. She did not have any specific pain in the chest at this time but did have burning in the chest this morning. Due to reassuring cardiac work-up, with negative chest x-ray does not appear cardiac. Will start patient on Protonix 40mg daily. Discussed diet changes and what to avoid such as caffeine, carbonated beverages, spicy food, citrus food. Elevate head at night. She does appear to have a left otitis media with erythematous TM with fluid behind the left ear. Right TM clear. Does have some maxillary sinus tenderness. Suspect developing ear infection. She reports history of similar symptoms with ear infections in the past. No evidence of ruptured TM. Will discharge with Augmentin. Discussed probiotics. Follow-up outpatient with your primary care physician in 4 to 5 days. Return precaution were discussed such as worsening symptoms and pain. Impression Primary Impression: GERD (gastroesophageal reflux disease) Additional Impression: Otitis media Disposition: 01 HOME, SELF-CARE Condition: Stable Departure-Patient Inst. Decision time for Depature: 12:30 Referrals: ARIANA VASQUES MD (PCP/Family) Primary Care Physician Patient Instructions: Acid Reflux and GERD in Adults (DC) Scripts Amoxicillin/Potassium Clav (Amox Tr-K Clv 875-125 mg Tab) 875 Mg-125 Mg Tablet 1 EACH PO BID for 7 Days, #14 TAB Prov: NIKOLAI COLLADO 11/10/22 Pantoprazole Sodium (Protonix) 40 Mg Tablet.dr 40 MG PO DAILY, #30 TAB Prov: NIKOLAI COLLADO 11/10/22 NIKOLAI COLLADO Nov 10, 2022 11:07
[2022-11-10] MEDS ORDERED: PANTOPRAZOLE 40 MG (PROTONIX) TAB PO ONE (11:15)
--- NOTE | 2022-11-10 11:50 | Diagnostic Imaging Report ---
EXAMINATION: Chest radiograph, portable AP view. DATE: 11/10/2022 11:32 AM INDICATION: 42-year-old female, chest pain. COMPARISON: January 13, 2021. FINDINGS: Heart size and mediastinal contours are unremarkable. There is no identified pneumothorax. There is no large pleural effusion. There is no identified focal airspace consolidation. IMPRESSION: 1. No identified acute cardiopulmonary abnormality. Dictated by: Dictated on workstation # [id number]
[2022-11-10 12:00] LABS: BASOPHILS % (AUTO) 0 % (0-10); EOSINOPHILS # (AUTO) 0.2 10^3/uL (0.0-0.3); EOSINOPHILS % (AUTO) 2 % (0-10); HEMATOCRIT 43 % (35-52); HEMOGLOBIN 14.2 g/dL (11.5-16.0); LYMPHOCYTES # (AUTO) 2.4 10^3/uL (1.0-4.0); LYMPHOCYTES % (AUTO) 35 % (12-44); MEAN CORPUSCULAR HEMOGLOBIN 31 pg (25-34); MEAN CORPUSCULAR HGB CONC 33 g/dL (32-36); MEAN CORPUSCULAR VOLUME 92 fL (80-99); MEAN PLATELET VOLUME 11.5 fL (9.0-12.2); MONOCYTES # (AUTO) 0.6 10^3/uL (0.0-1.0); MONOCYTES % (AUTO) 9 % (0-12); NEUTROPHILS # (AUTO) 3.6 10^3/uL (1.8-7.8); NEUTROPHILS % (AUTO) 53 % (42-75); PLATELET COUNT 208 10^3/uL (130-400); WHITE BLOOD COUNT 6.9 10^3/uL (4.3-11.0)
[2022-11-10 12:07] LABS: ALBUMIN 4.2 GM/DL (3.2-4.5)
[2022-11-10 12:08] LABS: CHLORIDE 108 MMOL/L (98-107); POTASSIUM 3.9 MMOL/L (3.6-5.0); SODIUM 141 MMOL/L (135-145)
[2022-11-10 12:09] LABS: CALCIUM 9.5 MG/DL (8.5-10.1)
[2022-11-10 12:10] LABS: GLUCOSE 89 MG/DL (70-105); TOTAL PROTEIN 7.7 GM/DL (6.4-8.2)
[2022-11-10 12:11] LABS: CARBON DIOXIDE 22 MMOL/L (21-32)
[2022-11-10 12:12] LABS: BILIRUBIN,TOTAL 0.3 MG/DL (0.1-1.0)
[2022-11-10 12:14] LABS: ALKALINE PHOSPHATASE 91 U/L (40-136); GFR ESTIMATED 109
[2022-11-10 12:15] LABS: BUN/CREATININE RATIO 13
[2022-11-10 12:17] LABS: ALANINE AMINOTRANSFERASE 14 U/L (0-55)
[2022-11-10] MEDS ORDERED: PANT40TA2 PO (12:31)
[2022-11-10] MEDS ORDERED: AMOX1TAB12 PO (12:31)
[2022-11-10 12:42] VITALS: BP 118/90
== END 2022-11-10 12:42 | disposition home or self-care (01) ==
LOC: EDUNIT# 10:21 → ER 10:24
DX: H66.92 Otitis media, unspecified, left ear (principal); K21.9 Gastro-esophageal reflux disease without esophagitis; I10 Essential (primary) hypertension; F17.210 Nicotine dependence, cigarettes, uncomplicated; Z95.5 Presence of coronary angioplasty implant and graft; Z86.79 Personal history of other diseases of the circulatory system
CPT/HCPCS: 36415; 71045; 80053; 84484; 85025; 93005

== ENCOUNTER 2023-02-02 08:42 | Emergency (ER) | payer MEDICAID ==
[~2023-02-02] VITALS: Ht 154 cm; Wt 90.0 kg
[2023-02-02] MEDS ORDERED: FAMOTIDINE 20 MG (PEPCID) TABLET PO STA (08:45)
[2023-02-02] MEDS ORDERED: ANTACID SUSP 30 ML UDC (MYLANTA) PO ONE (08:45)
[2023-02-02] MEDS ORDERED: ONDANSETRON 4 MG/2 ML (SDV) Z0FRAN IVP ONE (08:45)
[2023-02-02] MEDS ORDERED: ASPIRIN 81 MG CHEW (CHILDREN'S ASA) PO ONE (08:45)
[2023-02-02] MEDS ORDERED: LIDOCAINE 2% VISCOUS 15 ML UDC PO ONE (08:45)
--- NOTE | 2023-02-02 08:50 | ED Chest Pain ---
General Chief Complaint: Chest Pain Stated Complaint: CHEST PAINS Source: patient Exam Limitations: no limitations History of Present Illness Date Seen by Provider: Feb 02, 2023 Time Seen by Provider: 08:43 Initial Comments 42-year-old female with past medical history most notable for GERD and hyperlipidemia coming in due to chest pain. The pain has been going on for roughly 3 days, intermittent, constant now for the past day, she points to her epigastric region going through to her back. She states this feels separate from any other instances of chest pain she has had. Says it started like a burning, now more sharp. Nothing really seems to make it better or worse. Denies any prior history of DVT or PE, no lower extremity swelling or pain, no recent surgery, no hemoptysis, fever, shortness of breath, vomiting, diarrhea, weakness, numbness, or any other concerns. Allergies and Home Medications Allergies Coded Allergies: codeine (Verified Allergy, Severe, CHEST PAIN ET SOA, 04/07/15) ketorolac (Verified Allergy, Severe, SWELLING, 02/02/23) morphine (Verified Allergy, Severe, CHEST PAIN ET SOA, 04/07/15) tramadol (Verified Allergy, Mild, 08/14/15) watermelon (Verified Allergy, Mild, 08/14/15) hydrocodone (Unverified Adverse Reaction, Intermediate, 05/06/13) ibuprofen (Unverified Adverse Reaction, Intermediate, 05/06/13) Uncoded Allergies: JAY PEPPERS (Allergy, Mild, 08/14/15) Patient Home Medication List Home Medication List Reviewed: Yes Amoxicillin/Potassium Clav (Amox Tr-K Clv 875-125 mg Tab) 875 Mg-125 Mg Tablet, 1 EACH PO BID Prescribed by: KELLEY NELSON on 11/10/22 1231 Dicyclomine HCl (Bentyl) 10 Mg Capsule, 10 MG PO Q6H PRN for ABDOMINAL PAIN Prescribed by: STEVEN NICHOLSON on 02/08/17 1847 Divalproex Sodium (Divalproex Sodium) 500 Mg Tablet., (Reported) Entered as Reported by: BERONICA SOLORIO on 05/08/16 0947 Gabapentin (Gabapentin) 100 Mg Capsule, 100 MG PO Q8H Prescribed by: MIROSLAVA SCHREIBER on 03/19/21 1138 Hyoscyamine Sulfate (Levsin-Sl) 0.125 Mg Tab.subl, 1-2 TAB SL Q4H Prescribed by: STEVEN NICHOLSON on 02/08/171846 Montelukast Sodium (Montelukast Sodium) 10 Mg Tablet, (Reported) Entered as Reported by: BERONICA SOLORIO on 05/08/16 0946 Ondansetron (Zofran Odt) 4 Mg Tab.rapdis, 4 MG PO Q4H Prescribed by: STEVEN NICHOLSON on 02/08/171846 Oxycodone HCl/Acetaminophen (Oxycodone-Acetaminophen 5-325) 1 Each Tablet, 1 E ACH PO Q6H PRN for PAIN-MODERATE Prescribed by: ALEJANDRO BLACKMAN on 09/22/20 0827 Oxycodone HCl/Acetaminophen (Percocet 5-325 mg Tablet) 1 Each Tablet, 1 TAB PO Q6H Prescribed by: JALIL AGUILAR on 01/13/21 1208 Pantoprazole Sodium (Protonix) 40 Mg Tablet.dr, 40 MG PO DAILY Prescribed by: STEVEN NICHOLSON on 02/08/171846 Pantoprazole Sodium (Protonix) 40 Mg Tablet.dr, 40 MG PO DAILY Prescribed by: KELLEY NELSON on 11/10/22 1231 Review of Systems Review of Systems Constitutional: No fever EENTM: No Symptoms Reported Respiratory: No Symptoms Reported Cardiovascular: See HPI Gastrointestinal: No Symptoms Reported Genitourinary: No Symptoms Reported Musculoskeletal: no symptoms reported Skin: no symptoms reported Psychiatric/Neurological: No Symptoms Reported Endocrine: No Symptoms Reported Hematologic/Lymphatic: No Symptoms Reported Past Uledvge-Jdiuhj-Anuxmf Hx Patient Social History Tobacco Use?: Yes Tobacco type used: Cigarettes Immunizations Up To Date Tetanus Booster (TDap): Less than 5yrs Seasonal Allergies Seasonal Allergies: Yes Past Medical History Surgeries: Yes (HYSTERECTOMY, HEART CATH, [place], DEPRESSION, INPT PSYCHIATRIC) Cardiac, Gallbladder, Hysterectomy, Oophorectomy, Orthopedic Respiratory: No Asthma Cardiac: Yes (pt states she has had several heart attacks, but heart cath's were all neg) Coronary Artery Disease, Heart Attack, Hypertension Neurological: Yes Headaches /Migraines Reproductive Disorders: No 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 Sexually Transmitted Disease: No HIV/AIDS: No Gastrointestinal: Yes Hiatal Hernia, Ulcer, Gall Bladder Disease, Irritable Bowel Musculoskeletal: Yes Arthritis Endocrine: Yes Hypothyroidsim Cancer: Yes Cervical Psychosocial: Yes Anxiety, PTSD, Bipolar, Depression Integumentary: No Blood Disorders: No Adverse Reaction/Blood Tranf: No Family Medical History Heart Disease, Diabetes, Psychiatric Problems, Seizures, Stroke Physical Exam Vital Signs Vital Signs - First Documented 02/02/23 08:43 Temp 36.6 Pulse 74 Resp 16 B/P (MAP) 112/93 (99) Pulse Ox 97 O2 Delivery Room Air Capillary Refill : Height, Weight, BMI Height: 5'1.00" Weight: 140lbs. 8.0oz. [id number]; 30.00 BMI Method:Stated General Appearance: No Apparent Distress, WD/WN HEENT: PERRL/EOMI, Normal ENT Inspection, Pharynx Normal Neck: Full Range of Motion, Normal Inspection, Non Tender, Supple Respiratory: Chest Non Tender, Lungs Clear, Normal Breath Sounds, No Accessory Muscle Use, No Respiratory Distress Cardiovascular: Regular Rate, Rhythm, No Edema, Normal Peripheral Pulses Gastrointestinal: Normal Bowel Sounds, Non Tender, Soft; No Distended, No Guarding Extremity: Normal Capillary Refill, Normal Inspection, Normal Range of Motion, Non Tender, No Calf Tenderness, No Pedal Edema Neurologic/Psychiatric: Alert, Oriented x3, No Motor/Sensory Deficits, Normal Mood/Affect Skin: Normal Color, Warm/Dry Progress/Results/Core Measures Results/Orders Lab Results Laboratory Tests Test 02/02/23 09:04 Range/Units White Blood Count 7.6 4.3-11.0 10^3/uL Red Blood Count 4.95 3.80-5.11 10^6/uL Hemoglobin 15.1 11.5-16.0 g/dL Hematocrit 45 35-52 % Mean Corpuscular Volume 91 80-99 fL Mean Corpuscular Hemoglobin 31 25-34 pg Mean Corpuscular Hemoglobin Concent 33 32-36 g/dL Red Cell Distribution Width 12.7 10.0-14.5 % Platelet Count 234 130-400 10^3/uL Mean Platelet Volume 12.0 9.0-12.2 fL Immature Granulocyte % (Auto) 0 % Neutrophils (%) (Auto) 51 42-75 % Lymphocytes (%) (Auto) 35 12-44 % Monocytes (%) (Auto) 11 0-12 % Eosinophils (%) (Auto) 2 0-10 % Basophils (%) (Auto) 1 0-10 % Neutrophils # (Auto) 3.9 1.8-7.8 10^3/uL Lymphocytes # (Auto) 2.7 1.0-4.0 10^3/uL Monocytes # (Auto) 0.8 0.0-1.0 10^3/uL Eosinophils # (Auto) 0.2 0.0-0.3 10^3/uL Basophils # (Auto) 0.0 0.0-0.1 10^3/uL Immature Granulocyte # (Auto) 0.0 0.0-0.1 10^3/uL Prothrombin Time 13.4 12.2-14.7 SEC INR Comment 1.0 0.8-1.4 Activated Partial Thromboplast Time 33 24-35 SEC Sodium Level 140 135-145 MMOL/L Potassium Level 4.0 3.6-5.0 MMOL/L Chloride Level 108 H 98-107 MMOL/L Carbon Dioxide Level 22 21-32 MMOL/L Anion Gap 10 5-14 MMOL/L Blood Urea Nitrogen 8 7-18 MG/DL Creatinine 0.71 0.60-1.30 MG/DL Estimat Glomerular Filtration Rate 107 BUN/Creatinine Ratio 11 Glucose Level 99 70-105 MG/DL Calcium Level 9.9 8.5-10.1 MG/DL Corrected Calcium 9.5 8.5-10.1 MG/DL Magnesium Level 2.1 1.6-2.4 MG/DL Total Bilirubin 0.3 0.1-1.0 MG/DL Aspartate Amino Transf (AST/SGOT) 35 H 5-34 U/L Alanine Aminotransferase (ALT/SGPT) 11 0-55 U/L Alkaline Phosphatase 94 40-136 U/L Troponin I < 0.028 <0.028 NG/ML Total Protein 8.0 6.4-8.2 GM/DL Albumin 4.5 3.2-4.5 GM/DL Lipase 35 8-78 U/L My Orders Orders - NIKOLAI LEBLANC MD Cbc With Automated Diff (02/02/23 08:45) Magnesium (02/02/23 08:45) Chest 1 View, Ap/Pa Only (02/02/23 08:45) Ekg Tracing (02/02/23 08:45) Comprehensive Metabolic Panel (02/02/23 08:45) Protime With Inr (02/02/23 08:45) Partial Thromboplastin Time (02/02/23 08:45) O2 (02/02/23 08:45) Monitor-Rhythm Ecg Trace Only (02/02/23 08:45) Ed Iv/Invasive Line Start (02/02/23 08:45) Lipase (02/02/23 08:45) Troponin I Sinan (02/02/23 08:45) Aspirin Chewable Tablet (Baby Aspirin Ch (02/02/23 08:45) Lidocaine 2% Viscous 15 Ml (Xylocaine Vi (02/02/23 08:45) Famotidine Tablet (Pepcid Tablet) (02/02/23 08:45) Antacid Suspension (Mylanta Suspension (02/02/23 08:45) Ondansetron Injection (Zofran Injectio (02/02/23 08:45) Medications Given in ED Current Medications Medications Dose Ordered Sig/Vanna Route Start Time Stop Time Status Last Admin Dose Admin Al Hydrox/Mg Hydrox/Simethicone 30 ml ONCE ONCE PO 02/02/23 08:45 02/02/23 08:47 DC 02/02/23 08:55 30 ML Aspirin 324 mg ONCE ONCE PO 02/02/23 08:45 02/02/23 08:47 DC 02/02/23 08:58 324 MG Lidocaine HCl 15 ml ONCE ONCE PO 02/02/23 08:45 02/02/23 08:47 DC 02/02/23 08:55 15 ML Ondansetron HCl 4 mg ONCE ONCE IVP 02/02/23 08:45 02/02/23 08:47 DC 02/02/23 08:55 4 MG Vital Signs/I&O 02/02/23 08:43 Temp 36.6 Pulse 74 Resp 16 B/P (MAP) 112/93 (99) Pulse Ox 97 O2 Delivery Room Air Progress Progress Note : Progress Note 42-year-old female with above history coming in due to chest pain. ABCs were intact and vitals were stable on presentation. Physical exam reassuring with no acute abnormalities. EKG on my interpretation with no acute ischemic changes. Chest x-ray ordered and interpreted by me showing no obvious pneumothorax or opacities. An IV was placed and basic labs were obtained and were significant for negative troponin, normal creatinine, normal white blood cell count. Given the constant pain for 3 days, negative troponin, EKG without concerns acutely, this is not consistent with ACS. Additionally, the patient is low risk for a PE per Caruthers criteria. She was given Percocet for her chronic pain. I believe she is stable for discharge with outpatient follow-up. She was sent home with strict return precautions. Initial ECG Impression Date: Feb 02, 2023 Initial ECG Impression Time: 08:48 Initial ECG Rate: 64 Initial ECG Rhythm: Normal Sinus Comment Narrow QRS, normal axis, no significant ST changes or T wave abnormalities, there is some baseline wander and artifact Diagnostic Imaging Diagonstic Imaging: Xray (chest) Comments NAME: NILESH AVILA [employer] REC#: [id number] PT STATUS: REG ER : 1980 PHYSICIAN: NIKOLAI LEBLANC MD ADMIT DATE: 02/02/23/ER Draft Date of Exam:02/02/23 CHEST 1 VIEW, AP/PA ONLY Portable erect AP chest at 856. INDICATION: Chest pain COMPARISON: 11/10/2022 FINDINGS: The heart size is stable when compared to the prior exam. The lungs are clear. There is no evidence for failure, pneumonia or for a pleural effusion. The mediastinum is not widened. The osseous structures are intact. IMPRESSION: There is no evidence for active disease. When compared to the prior exam, there has been no significant change. Dictated on workstation # [id number] Dict: 02/02/23 0943 Trans: 02/02/23 0954 [facility] [id number] Interpreted by: JUAN DIEGO CARRILLO MD Electronically signed by: Departure Impression Primary Impression: Chest pain Qualified Codes: R07.82 - Intercostal pain Disposition: 01 HOME, SELF-CARE Condition: Stable Departure-Patient Inst. Decision time for Depature: 10:05 Referrals: ARIANA VASQUES MD (PCP/Family) Primary Care Physician Patient Instructions: Chest Pain, Adult ED Add. Discharge Instructions: We are not seeing any life-threatening causes of chest pain at this time. Please follow-up with your regular doctor and get a referral to a remote pilot operator if it persists. Take your regular medicines such as Tylenol as needed for pain at home. Work/School Note: Work Release Form Date Seen in the Emergency Department: Feb 02, 2023 Return to Work: Feb 03, 2023 Restrictions: No Restrictions NIKOLAI LEBLANC MD Feb 02, 2023 08:50
[2023-02-02 09:11] LABS: BASOPHILS % (AUTO) 1 % (0-10); EOSINOPHILS # (AUTO) 0.2 10^3/uL (0.0-0.3); EOSINOPHILS % (AUTO) 2 % (0-10); HEMATOCRIT 45 % (35-52); HEMOGLOBIN 15.1 g/dL (11.5-16.0); LYMPHOCYTES # (AUTO) 2.7 10^3/uL (1.0-4.0); LYMPHOCYTES % (AUTO) 35 % (12-44); MEAN CORPUSCULAR HEMOGLOBIN 31 pg (25-34); MEAN CORPUSCULAR HGB CONC 33 g/dL (32-36); MEAN CORPUSCULAR VOLUME 91 fL (80-99); MONOCYTES # (AUTO) 0.8 10^3/uL (0.0-1.0); MONOCYTES % (AUTO) 11 % (0-12); NEUTROPHILS # (AUTO) 3.9 10^3/uL (1.8-7.8); NEUTROPHILS % (AUTO) 51 % (42-75); PLATELET COUNT 234 10^3/uL (130-400); WHITE BLOOD COUNT 7.6 10^3/uL (4.3-11.0)
[2023-02-02 09:20] LABS: ALBUMIN 4.5 GM/DL (3.2-4.5); CHLORIDE 108 MMOL/L (98-107); SODIUM 140 MMOL/L (135-145)
[2023-02-02 09:22] LABS: CALCIUM 9.9 MG/DL (8.5-10.1)
[2023-02-02 09:23] LABS: GLUCOSE 99 MG/DL (70-105)
[2023-02-02 09:24] LABS: CARBON DIOXIDE 22 MMOL/L (21-32)
[2023-02-02 09:25] LABS: BILIRUBIN,TOTAL 0.3 MG/DL (0.1-1.0)
[2023-02-02 09:39] LABS: PROTHROMBIN TIME PATIENT 13.4 SEC (12.2-14.7)
--- NOTE | 2023-02-02 09:54 | Diagnostic Imaging Report ---
Portable erect AP chest at 856. INDICATION: Chest pain COMPARISON: 11/10/2022 FINDINGS: The heart size is stable when compared to the prior exam. The lungs are clear. There is no evidence for failure, pneumonia or for a pleural effusion. The mediastinum is not widened. The osseous structures are intact. IMPRESSION: There is no evidence for active disease. When compared to the prior exam, there has been no significant change. Dictated by: Dictated on workstation # [id number]
[2023-02-02 09:56] LABS: ALANINE AMINOTRANSFERASE 11 U/L (0-55); ALKALINE PHOSPHATASE 94 U/L (40-136); BUN/CREATININE RATIO 11; CREATININE SERUM 0.71 MG/DL (0.60-1.30); GFR ESTIMATED 107; LIPASE 35 U/L (8-78); MAGNESIUM 2.1 MG/DL (1.6-2.4)
[2023-02-02] MEDS ORDERED: oxyCODONE/APAP 5/325MG (PERCOCET 5) TABLET PO ONE (10:00)
[2023-02-02 10:42] VITALS: BP 119/77
== END 2023-02-02 10:33 | disposition home or self-care (01) ==
LOC: EDUNIT# 08:42 → ER 08:43
DX: R07.89 Other chest pain (principal); F17.210 Nicotine dependence, cigarettes, uncomplicated
CPT/HCPCS: 36415; 71045; 80053; 83690; 83735; 84484; 85025; 85610; 85730; 93005; 93041

== ENCOUNTER → 2023-02-02 | Outpatient (CLI) | payer MEDICAID ==
[~2023-02-02] MED LIST changes: +AMOX1TAB12 PO; +MONT-47 PO; -MONT10TA21 PO
--- NOTE | 2023-02-02 08:36 | Diagnostic Imaging Report ---
PROCEDURE: CT head without contrast. TECHNIQUE: Multiple contiguous axial images were obtained through the brain without the use of intravenous contrast. Auto Exposure Controls were utilized during the CT exam to meet ALARA standards for radiation dose reduction. INDICATION: Headache after injury. COMPARISON: None FINDINGS: The brain parenchyma is normal in attenuation. No intra- or extra-axial mass or fluid collection. No acute hemorrhage. The ventricles are normal in size, shape, and morphology. The cano-white matter junction is normal. The subarachnoid cisterns are patent. The visualized paranasal sinuses are normal. The visualized portions of the orbits and globes are normal. The mastoid air cells are clear. The call center trainer topogram shows no lytic lesion or fracture. Impression: No acute intracranial process. Dictated by: Dictated on workstation # [id number]
--- NOTE | 2023-02-02 15:30 | Diagnostic Imaging Report ---
INDICATION: Routine screening. No prior mammograms are available for comparison. 2-D and 3-D bilateral screening mammography was performed with CAD. Scattered fibroglandular densities are identified bilaterally. No spiculated mass or malignant-appearing microcalcifications are identified. Axillae are unremarkable. IMPRESSION: No mammographic features suspicious for malignancy are identified. ACR BI-RADS Category 1: Negative. Result letter will be mailed to the patient. Note: At least 10% of breast cancer is not imaged by mammography. BI-RADS Category 1 Dictated by: Dictated on workstation # [id number]
== END ==
LOC: RAD 07:42
PROVIDERS: ATTEND Nurse Practitioner Family
DX: Z12.31 Encounter for screening mammogram for malignant neoplasm of breast (principal); S09.90XS Unspecified injury of head, sequela
CPT/HCPCS: 70450; 77063; 77067

== ENCOUNTER 2023-04-07 06:17 | Outpatient (CLI) | payer MEDICAID ==
[~2023-04-07] VITALS: Ht 155 cm; Wt 85.7 kg
[2023-04-07] MEDS ORDERED: DULO20CA19 PO (13:40)
[2023-04-07] MEDS ORDERED: ATOR40TA70 PO (13:40)
[2023-04-07] MEDS ORDERED: MELO15TA39 PO (13:40)
== END 2023-04-07 14:01 | disposition home or self-care (01) ==
LOC: PREOP 06:17
PROVIDERS: ATTEND Surgery
DX: Z01.818 Encounter for other preprocedural examination (principal)

== ENCOUNTER 2023-04-20 08:32 | Day surgery (SDC) | payer MEDICAID ==
[~2023-04-20] VITALS: Ht 154 cm; Wt 85.7 kg
[~2023-04-20 08:32] MED LIST changes: +ATOR40TA70 PO; +DULO20CA19 PO; +MELO15TA39 PO
[2023-04-20] MEDS ORDERED: LACTATED RINGERS 1,000 ML 1,000 ML IV STA (08:39)
[2023-04-20] MEDS ORDERED: HURRICAINE EXT TUBE (BENZOCAINE) XX PRN (08:45)
[2023-04-20 08:55] VITALS: BP 118/68
[2023-04-20] MEDS ORDERED: ONDANSETRON INJECTION 4 MG/2 ML (SDV) IVP ONE (09:00)
--- NOTE | 2023-04-20 09:25 | Progress Note-Pre Operative ---
Pre-Operative Progress Note Date H&P Reviewed: Apr 20, 2023 Time H&P Reviewed: 09:24 History & Physical: H&P Reviewed, Patient Examed, No changes noted Pre-Operative Diagnosis: melena and GERD SHANNON NOVOA DO Apr 20, 2023 09:25
[2023-04-20] MEDS ORDERED: MIDAZOLAM INJ 2 MG/2 ML VIAL ONE (10:11)
[2023-04-20 10:40] VITALS: BP 123/63
[2023-04-20 10:45] VITALS: BP 120/68
--- NOTE | 2023-04-20 10:45 | Progress Note-Post Operative ---
Post-Operative Progess Note Surgeon (s)/Senior Geologist (s) Surgeon SHANNON NOVOA DO Senior Geologist: none Pre-Operative Diagnosis melena and GERD Post-Operative Diagnosis hiatial hernia. colon polyps Procedure & Operative Findings Date of Procedure 04/20/23 Procedure Performed/Findings egd with biopsies, colonoscopy with hot biopsy polypectomy x2 Anesthesia Type per EXPORT MANAGER Estimated Blood Loss Estimated blood loss (mL): none Specimens/Packing Specimens Removed antrum, ge junction, sigmoid polyps SHANNON NOVOA DO Apr 20, 2023 10:45
--- NOTE | 2023-04-20 10:46 | Discharge Inst-Simple/Standard ---
Discharge Inst-Standard Patient Instructions/Follow Up Plan of Care/Instructions/FU: sathish 2 weeks Activity as Tolerated: Yes Discharge Diet: Regular Diet SHANNON NOVOA DO Apr 20, 2023 10:46
[2023-04-20 10:55] VITALS: BP 120/68
[2023-04-20 11:20] VITALS: BP 120/68
[2023-04-20 11:28] VITALS: BP 120/68
--- NOTE | 2023-04-20 13:30 | Anesthesia-General Post-Op ---
MAC Patient Condition Mental Status/LOC: Same as Preop Cardiovascular: Satisfactory Nausea/Vomiting: Absent Respiratory: Satisfactory Pain: Controlled Complications: Absent Post Op Complications Complications None Follow Up Care/Instructions Patient Instructions None needed. Anesthesiology Discharge Order Discharge Order Patient is doing well, no complaints, stable vital signs, no apparent adverse anesthesia problems. No complications reported per nursing. ANGEL BELLA CRNA Apr 20, 2023 13:30
--- NOTE | 2023-04-20 17:52 | OPERATIVE REPORT ---
DATE OF SERVICE: 04/20/2023 PREOPERATIVE DIAGNOSES: Gastroesophageal reflux disease and melena. POSTOPERATIVE DIAGNOSES: Hiatal hernia and sigmoid colon polyps x2. SURGEON: Shannon Jose DO ANESTHESIA: Per DIRECTOR OF REGULATORY AFFAIRS. PROCEDURES: EGD with biopsies, colonoscopy with hot biopsy polypectomy x2. INDICATIONS: The patient is a 43-year-old female with GERD and melena symptoms. She understands risks and benefits of procedure and wishes to proceed. Consent was signed in chart. DESCRIPTION OF PROCEDURE: The patient was taken to endoscopy suite, placed in left lateral recumbent position. Timeout was performed. Scope was inserted in the mouth, down the esophagus, stomach, into the duodenum without difficulty. No polyps, masses or ulcerations within the duodenum. Scope was slowly retracted back. No polyps, masses or ulcerations within the antrum. Biopsy of the antrum was obtained. Scope was retroflexed noting a small hiatal hernia, no other pathology. Scope was returned to its normal position, slowly withdrawn until distal esophagus. Biopsy of GE junction was obtained. Scope was then slowly retracted back, noting no other pathology. Digital rectal exam was performed. No palpable polyps, masses or ulcerations. Scope was inserted in the rectum, advanced all the way to the cecum with minimal difficulty. Prep was adequate. Scope was slowly retracted back. No polyps, masses or ulcerations within the cecum, ascending, transverse, descending colon. Sigmoid colon had 2 small polyps, which hot biopsy polypectomy was performed. Scope was then slowly retracted back into the rectum, which had normal appearance. Scope was inserted and retracted multiple times, noting no other pathology. Scope was removed. The patient tolerated the procedure well without complications, taken to recovery in stable condition. RECOMMENDATIONS: The patient will repeat colonoscopy in 5 years. The patient to be on Protonix 40 mg daily. We will await biopsy results. Job ID: [id number] DocumentID: [id number] Dictated Date: 04/20/2023 10:44:42 Bracelet Form Coverer Date: 04/20/2023 17:50:00 Dictated By: SHANNON JOSE DO
== END 2023-04-20 11:28 | disposition home or self-care (01) ==
LOC: ENDO 08:32
PROVIDERS: ATTEND Surgery
DX: K21.9 Gastro-esophageal reflux disease without esophagitis (principal); K63.5 Polyp of colon; K44.9 Diaphragmatic hernia without obstruction or gangrene; K92.1 Melena; E66.9 Obesity, unspecified; F17.210 Nicotine dependence, cigarettes, uncomplicated; Z79.899 Other long term (current) drug therapy; Z68.36 Body mass index [BMI] 36.0-36.9, adult

== ENCOUNTER → 2023-06-30 | Outpatient (CLI) | payer MEDICAID | LOC: CARD 13:56 | PROVIDERS: ATTEND Internal Medicine Cardiovascular Disease | DX: I34.0 Nonrheumatic mitral (valve) insufficiency (principal); I10 Essential (primary) hypertension; I25.10 Atherosclerotic heart disease of native coronary artery without angina pectoris | CPT/HCPCS: 93306 ==

== ENCOUNTER → 2023-07-06 | Outpatient (CLI) | payer MEDICAID ==
[2023-07-06 09:45] LABS: ALBUMIN 4.2 GM/DL (3.2-4.5); POTASSIUM 4.4 MMOL/L (3.6-5.0)
[2023-07-06 09:46] LABS: CALCIUM 9.4 MG/DL (8.5-10.1)
[2023-07-06 09:47] LABS: TOTAL PROTEIN 7.8 GM/DL (6.4-8.2)
[2023-07-06 09:49] LABS: BILIRUBIN,TOTAL 0.3 MG/DL (0.1-1.0)
[2023-07-06 09:51] LABS: CREATININE SERUM 0.8 MG/DL (0.60-1.30)
== END ==
LOC: LAB 09:20
PROVIDERS: ATTEND Internal Medicine Cardiovascular Disease
DX: I10 Essential (primary) hypertension (principal); I25.10 Atherosclerotic heart disease of native coronary artery without angina pectoris; E78.2 Mixed hyperlipidemia; R07.2 Precordial pain; F41.1 Generalized anxiety disorder; F43.10 Post-traumatic stress disorder, unspecified; Z82.49 Family history of ischemic heart disease and other diseases of the circulatory system
CPT/HCPCS: 36415; 80053; 80061